=== PATIENT | male | born 1940 | race Hispanic/Latino ===

== ENCOUNTER 2018-05-26 09:53 | Inpatient (IN) | payer OTHER ==
[2018-05-26 10:35] LABS: #Lymphocytes 0.6 thou/uL (1.20-3.40); #Monocytes 0.6 thou/uL (0.11-0.59); #Neutrophils 6.6 thou/uL (1.40-6.50); %Basophils 0.3 % (0.0-1.0); %Eosinophils 0.1 % (0.0-10.0); %Monocytes 7.2 % (0.0-10.0); %Neutrophils 84.4 % (42.0-75.0); Hemoglobin 5.5 g/dL (14.0-18.0); Mean Corpuscular HGB CONC 28.5 g/dL (32.0-36.0); Mean Corpuscular Hemoglobin 20.9 pg (27.0-31.0); Mean Corpuscular Volume 73.3 fL (78.0-98.0); Mean Platelet Volume 8.6 fL (7.4-10.4); Platelet Count 325 thou/uL (130-400); RBC Distribution Width 16.1 % (11.5-14.5); Red Blood Cell (RBC) Count 2.62 mill/uL (4.70-6.10); White Blood Cell (WBC) Count 7.8 thou/uL (4.8-10.8)
[2018-05-26 10:52] LABS: Anisocytosis SLIGHT = 6-15 cells (100X) (0-5/hpf); Burr Cells SLIGHT = 2-5 cells (100X) (0-1/hpf); Elliptocytes SLIGHT = 2-5 cells (100X) (0-1/hpf); Hypochromia SLIGHT = 6-15 cells (100X) (0-5/hpf); MDiff Complete? YES; Microcytosis SLIGHT = 6-15 cells (100X) (0-5/hpf); Ovalocytes SLIGHT = 2-5 cells (100X) (0-1/hpf); Platelet Morphology Comment Appears Adequate; Poikilocytosis MODERATE=16-30 cells (100X) (0-5/hpf); Polychromasia SLIGHT = 2-3 cells (100X) (0-2/hpf); Schistocytes SLIGHT = 2-5 cells (100X) (0-1/hpf); Spherocytes SLIGHT = 1-5 cells (100X) (None Seen); Tear Drops SLIGHT = 2-5 cells (100X) (0-1/hpf)
[2018-05-26 10:54] LABS: ALT (SGPT) 105 U/L (8-55); AST (SGOT) 76 U/L (5-34); Albumin 3.1 g/dL (3.4-4.8); Alkaline Phosphatase 162 U/L (40-150); Anion Gap 13 mmol/L (10-20); BUN (Urea Nitrogen) 62 mg/dL (8.4-25.7); Bilirubin, Total 0.7 mg/dL (0.2-1.2); CK (CPK) 539 U/L (30-200); Calc. Creatinine Clearance 0 mL/min (70-130); Calcium 8.3 mg/dL (7.8-10.44); Carbon Dioxide 20 mmol/L (23-31); Chloride 115 mmol/L (98-107); Estimated GFR-MDRD 29; Globulin 2.4 g/dL (2.4-3.5); Glucose 141 mg/dL (83-110); Potassium 4.5 mmol/L (3.5-5.1); Protein, Total 5.5 g/dL (5.8-8.1); Sodium 143 mmol/L (136-145)
[2018-05-26] MEDS ORDERED: Acetaminophen 325 MG TAB PO PRN (11:00)
[2018-05-26] MEDS ORDERED: Aspirin 325 MG TAB PO SCH (11:00)
[2018-05-26] MEDS ORDERED: Ondansetron PF 4 MG/2 ML Vial IVP PRN (11:00)
[2018-05-26] MEDS ORDERED: Ondansetron ODT 4 MG TAB SL PRN (11:00)
--- NOTE | 2018-05-26 11:36 | RAD ---
PORTABLE CHEST: DATE: 05/26/2018. PROVIDED CLINICAL HISTORY: Cough. FINDINGS: No comparisons. Cardiac silhouette appears enlarged, which may be at least partially on the basis of portable techniq ue. Median sternotomy changes and atherosclerosis demonstrated. There is poor visualization of the left hemidiaphragm that may reflect left basilar pleural and/or parenchymal opacity, with minimal ra nting of the left costophrenic angle. There is no evidence for pneumothorax. Airspace disease in th e left suprahilar region is noted. IMPRESSION: Left suprahilar and possibly also basilar airspace disease, which may reflect pneumonia in the approp riate clinical context. Radiographic followup is recommended. POS: [facility]
[2018-05-26 11:38] LABS: CKMB 6.9 ng/mL (0-6.6)
[2018-05-26 11:56] LABS: Bilirubin Negative (Negative); Blood, Urine Trace (Negative); Clarity CLEAR (Clear); Glucose, Urine (Dipstick) Negative (Negative); Leukocyte Negative (Negative); Nitrite Negative (Negative); Protein, Urine (Dipstick) Trace mg/dL (Neg-Trace); Specific Gravity, Urine 1.015 (1.002-1.036)
[2018-05-26 11:58] LABS: Bacteria/HPF None Seen HPF (None Seen); Hyaline Casts/LPF 0-3 HYALINE CAST LPF (0-3 Hyaline); RBC/HPF 0-3 HPF (0-3); Squamous Epithelial 0-3 HPF (0-3); WBC/HPF 0-3 HPF (0-3)
[2018-05-26 12:12] LABS: Yeast-All Forms None Seen HPF (None Seen)
[2018-05-26] MEDS ORDERED: Furosemide 40 MG TAB ONE ×2 (12:21→12:22)
[2018-05-26] MEDS ORDERED: Furosemide 40 MG/4 ML VIAL ONE (12:21)
--- NOTE | 2018-05-26 13:27 | HP ---
PRIMARY CARE PROVIDER: [facility]. CHIEF COMPLAINT: Shortness of breath. HISTORY OF PRESENT ILLNESS: This is an 78-year-old male, who presents to [facility] Emergency Department in transfer from PAC Unit-1 from [place], [place], where the patient is currently incarcerated. The patient apparently developed increasing shortness of breath and chest pain in the last 24 to 48 hours. History is obtained mainly after discussions with the emergency room attending as well as review of electronic medical record as the patient is on current BiPAP, noninvasive mechanical ventilation, and unable to provide verbal history. The patient had complained of persistent chest pain, throbbing, centrally located over the last 48 hours. The patient had admitted to increased cough, congestion, and shortness of breath. The patient states he has felt very weak and needs assistance with short distance transfers and essentially unable to ambulate. The patient denied taking any new medications and the patient states he is on chronic medication regimen including aspirin daily. The patient denies any prior history of blood transfusions or a colonoscopy or endoscopy. The patient denies any evidence of melena or noting blood in the stool or emesis. In the emergency room, the patient underwent general evaluation and noted with volume overload and hypoxemia. The patient was placed on BiPAP noninvasive mechanical ventilation and treated with IV Lasix after initial BNP was noted at 4800. The patient also receives aspirin 324 mg and sublingual nitroglycerin. Screening CBC showed a hemoglobin of 5.5, and the patient was typed and crossed for 2 units of packed red blood cells, awaiting transfusion in the emergency room. PAST MEDICAL HISTORY: 1. Coronary artery disease. 2. Hyperlipidemia. 3. Benign prostatic hyperplasia. 4. Hypertension. 5. Chronic anemia. 6. Inguinal hernia. PAST SURGICAL HISTORY: Status post coronary artery bypass grafting. MEDICATIONS: 1. Enteric-coated aspirin 81 mg p.o. daily. 2. Lipitor 40 mg p.o. daily. 3. Carvedilol 6.25 mg p.o. b.i.d. 4. Docusate sodium 100 mg p.o. b.i.d. 5. Terazosin 5 mg p.o. at bedtime. ALLERGIES: NO KNOWN DRUG ALLERGIES. FAMILY HISTORY: Positive for hypertension and coronary artery disease. SOCIAL HISTORY: No current alcohol, tobacco, or illicit drug use. Incarcerated at the PAC unit-1 [place], [place]. Requires assistance for short distance ambulation and transfers. REVIEW OF SYSTEMS: Unobtainable as the patient is on noninvasive mechanical ventilation requiring BiPAP. PHYSICAL EXAMINATION: VITAL SIGNS: Currently, blood pressure 123/64, pulse 72, respiratory rate 20, temperature 98.4 degrees Fahrenheit, O2 saturation 100% on BiPAP noninvasive mechanical ventilation. GENERAL APPEARANCE: This is an 78-year-old male, alert and engaged when directly interviewed and respiratory distress on BiPAP noninvasive mechanical ventilation. HEENT: Pupils are equal, round, reactive to light and accommodation. Extraocular muscles are intact. No scleral icterus. No conjunctival injection. Nares patent. OP is clear. NECK: Supple. No cervical adenopathy. No thyromegaly. No carotid bruits. No JVD appreciated. Cervical spine with full active and passive range of motion. No meningeal signs noted. CHEST: Diminished breath sounds and coarse rhonchi bilaterally. Diminished air flow in the bases. CARDIOVASCULAR: S1 and S2 without noted murmur, rub, or gallop. Heart sounds are distant. ABDOMEN: Rounded with mild tenderness to palpation diffusely. No rebound or guarding noted. No palpable mass. EXTREMITIES: Warm and dry with fair turgor, pale. Edema noted to the proximal shins bilaterally. Pulses are palpable distally at the dorsalis pedis, posterior tibial, and popliteal arteries bilaterally. Capillary refill less than 2 seconds. NEUROLOGIC: Cranial nerves 2 through 12 are grossly intact. No focal or lateralizing signs appreciated. The patient not observed ambulatory during this exam. PERTINENT LABORATORY DATA AND X-RAY FINDINGS: Sodium 143, potassium 4.5, chloride 115, CO2 of 20, BUN 62, creatinine 2.22, estimated GFR 29, glucose 141, calcium 8.3, AST 76, ALT 105, and alkaline phosphatase 162, total CK of 539, troponin I 0.064. BNP 4813. CBC showed a white blood cell count of 7.8, hemoglobin 5.5, hematocrit 19.2, MCV 73, platelet count 325 with 84% neutrophilia. Portable chest x-ray dated 05/26/2018, showed chronic changes in bilateral lung espana with cardiomegaly. Left-sided pleural effusion noted. Midline sternotomy changes consistent with prior bypass surgery. EKG dated 05/26/2018, by my interpretation shows sinus mechanism with heart rates in the 70s. Premature ventricular contraction noted. T-wave depression in leads V5 and V6. Normal axis. ASSESSMENT AND PLAN: 1. Acute hypoxic respiratory failure. Suspect secondary to acute volume overload. We will continue BiPAP noninvasive mechanical ventilation and titrate to clinical response. Repeat portable chest x-ray in the a.m. Continue oxygen supplementation to maintain O2 saturations greater than or equal to 90. 2. Acute congestive heart failure exacerbation. Exact type unknown currently. Continue Lasix 40 mg IV b.i.d. Monitor daily I's and O's and weight. Check 2D transthoracic echocardiogram for accurate ejection fraction. Consult Cardiology Service for any further recommendations. Continue aspirin 81 mg daily. 3. Microcytic anemia. Question of acute versus subacute. Type and cross for 2 units of packed red blood cells and transfuse when available. Check iron, ferritin, and reticulocyte count. Check stool guaiac. Consult GI Service for any further recommendations and for consideration of endoscopy. Repeat CBC in the a.m. 4. Acute kidney injury. Suspect multifactorial including iatrogenic influence with volume depletion. Avoid nephrotoxic agents and limit contrast exposure. Serial creatinine monitoring. 5. Transaminitis. Suspect secondary to volume overload. We will continue Lasix 40 mg IV b.i.d. Serial LFT monitoring. Avoid hepatotoxic medications. 6. Demand ischemia. Suspected given initial mild elevation to troponin I. Continue aspirin 81 mg daily. Continue Lipitor 40 mg p.o. daily. Consult Cardiology Service for any further recommendations. 7. Prophylaxis. SCDs while in bed. Pepcid 20 mg IV b.i.d. 8. Code status is full. Surrogate medical decision maker not identified. Job ID: [id number]
[2018-05-26] MEDS ORDERED: Ondansetron ODT 4 MG TAB PO PRN (14:40)
[2018-05-26] MEDS ORDERED: Benzonatate 100 MG CAP PO PRN (14:40)
[2018-05-26] MEDS ORDERED: Furosemide 40 MG/4 ML VIAL SLOW IVP SCH ×2 (14:45→18:00)
[2018-05-26 15:02] LABS: Troponin I 0.062 ng/mL (< 0.028)
[2018-05-26] MEDS: Diabetic Tussin 200 MG/10 ML UDCUP PO PRN (17:24)
[2018-05-26 17:50] LABS: Troponin I 0.056 ng/mL (< 0.028)
[2018-05-26 21:05] LABS: Hemoglobin 7.4 g/dL (14.0-18.0)
--- NOTE | 2018-05-26 22:27 | CON ---
DATE OF CONSULTATION: 05/26/2018 REASON FOR CONSULTATION: Anemia. HISTORY OF PRESENT ILLNESS: Jose Avila is an 78-year-old man who was admitted to the hospital after being transferred from his jail unit in [place] where he is currently incarcerated. He presented with increasing shortness of breath and chest discomfort over the past 24-48 hours. He was initially hypoxic with increased work of breathing and had to be put on BiPAP. He is now off the BiPAP. He complains of progressive fatigue, cough, shortness of breath, and overall weakness. He has a significant cardiac history of coronary artery disease and CABG in the past. It appears he does take aspirin and Lipitor as well as carvedilol daily. On admission labs, he was also found to have a severe microcytic anemia with hemoglobin of 5.5, and he is now receiving 2 units RBC transfusion. It is unclear what the patient's baseline hemoglobin is or how acute this might be. He tells me that for about the past 6 months, he has intermittently had red blood with his bowel movements. This is not really associated with any significant abdominal or anal pain. Oral intake has evidently been just fine. He thinks he might have had a colonoscopy in the past, but would have been in the very distant past. REVIEW OF SYSTEMS: Full review of systems including constitutional, head, eyes, ears, nose, throat, GI, , cardiovascular, respiratory, musculoskeletal, and neurologic systems is negative except as noted in the HPI. PAST MEDICAL HISTORY: 1. Coronary artery disease. 2. Hyperlipidemia. 3. BPH. 4. Hypertension. 5. Chronic anemia. 6. Inguinal hernia. 7. Coronary artery bypass graft. OUTPATIENT MEDICATIONS: 1. Aspirin 81 mg daily. 2. Lipitor 40 mg daily. 3. Carvedilol 6.25 mg b.i.d. 4. Docusate 100 mg p.o. b.i.d. 5. Terazosin 5 mg p.o. at bedtime. ALLERGIES: NO KNOWN DRUG ALLERGIES. FAMILY HISTORY: Positive for hypertension and coronary artery disease. SOCIAL HISTORY: No current alcohol, tobacco, or drug use. He is incarcerated in [place]. PHYSICAL EXAMINATION: VITAL SIGNS: Temperature 98.3, 95% oxygen saturation on 3 L nasal cannula, blood pressure 118/51, pulse 70, respirations 22 per minute. GENERAL: Chronically ill appearing 78-year-old man, pale, lying in bed, in no distress. SKIN: He is pale, no jaundice. No rashes are palpable. EYES: No scleral icterus. Extraocular movements intact. ENT: Mucous membranes moist. No oral lesions. LYMPH: No submandibular or supraclavicular lymphadenopathy. Thyroid nontender to palpation. HEART: Regular rate and rhythm. LUNGS: Bibasilar crackles. No respiratory distress at this time. ABDOMEN: Flat, bowel sounds present. Soft, nontender to palpation throughout. He has left-sided inguinal hernia. EXTREMITIES: 1 to 2+ bilateral lower extremity edema. VESSELS: Radial pulses 2+ bilaterally NEUROLOGIC: Cranial nerves 2 through 12 intact bilaterally. No focal deficits. LABORATORY STUDIES: Hemoglobin 5.5, MCV 73.3, platelets 325. Sodium 143, potassium 4.5, BUN 62, creatinine 2.22, glucose 141, total bilirubin 0.7, alkaline phosphatase 162, AST 76, ALT 105. CK is elevated to 539, CK-MB is elevated to 6.9, troponin is 0.06 and stable. BNP is elevated to 4812. Albumin is 3.1. Urinalysis is negative. IMAGING STUDIES: Chest x-ray shows some airspace disease in the left suprahilar and left basilar area. ASSESSMENT AND PLAN: 1. Microcytic anemia, unknown chronicity. 2. Lower gastrointestinal bleeding, reported as intermittent over the past 6 months. 3. Congestive heart failure, severe by report, with current exacerbation. 4. Acute kidney injury. I discussed the anemia with the patient. It is unclear how chronic this is, but in the context of intermittent lower GI bleeding over the past 6 months, this could certainly be due to chronic gastrointestinal bleeding. Colonoscopy is warranted for further investigation. However, by report, he is found to have significant decreased cardiac function on echocardiogram just performed. I am awaiting that formal report. Cardiology formal evaluation is in process. He is being treated for CHF exacerbation and acute renal failure. I think he would be high risk for any endoscopy at this time. I agree with transfusion for now. We will follow up iron studies when they are available. I think we could potentially proceed with colonoscopy later this admission if he is optimized from a cardiorespiratory standpoint and Cardiology clears him for the procedure. At this time, the patient is certainly in agreement with this. GI can follow along. No plan for any endoscopy at this time. Job ID: [id number]
[2018-05-26] MEDS: Atorvastatin Calcium 40 MG TAB PO SCH (23:13)
[2018-05-27] MEDS: Diabetic Tussin 200 MG/10 ML UDCUP PO PRN (02:11)
[2018-05-27] MEDS: Ondansetron PF 4 MG/2 ML Vial IVP PRN ×2 (02:12→08:30)
[2018-05-27 04:45] LABS: Reticulocyte Count 1.6 % (0.5-1.5)
[2018-05-27 05:24] LABS: Anion Gap 12 mmol/L (10-20); BUN (Urea Nitrogen) 63 mg/dL (8.4-25.7); Calc. Creatinine Clearance 0 mL/min (70-130); Carbon Dioxide 21 mmol/L (23-31); Chloride 115 mmol/L (98-107); Estimated GFR-MDRD 30; Potassium 3.8 mmol/L (3.5-5.1); Sodium 144 mmol/L (136-145)
[2018-05-27 05:25] LABS: ALT (SGPT) 85 U/L (8-55); AST (SGOT) 45 U/L (5-34); Albumin 2.9 g/dL (3.4-4.8); Alkaline Phosphatase 170 U/L (40-150); Bilirubin, Total 0.8 mg/dL (0.2-1.2); CK (CPK) 224 U/L (30-200); Calcium 8.2 mg/dL (7.8-10.44); Globulin 2.6 g/dL (2.4-3.5); Glucose 149 mg/dL (83-110); Iron 11 ug/dL (65-175); Iron Binding Capacity, Total 288 mcg/dL (261-462); Magnesium 2.4 mg/dL (1.6-2.6); Protein, Total 5.5 g/dL (5.8-8.1)
[2018-05-27 05:38] LABS: Thyroid Stimulating Hormone 0.6613 uIU/mL (0.35-4.94)
[2018-05-27] MEDS: Furosemide 40 MG/4 ML VIAL SLOW IVP SCH ×2 (05:58→13:18)
[2018-05-27 06:15] LABS: Anisocytosis SLIGHT = 6-15 cells (100X) (0-5/hpf); Band 10 % (5-11); Burr Cells SLIGHT = 2-5 cells (100X) (0-1/hpf); Elliptocytes SLIGHT = 2-5 cells (100X) (0-1/hpf); Hemoglobin 6.8 g/dL (14.0-18.0); Hypochromia SLIGHT = 6-15 cells (100X) (0-5/hpf); Lymphocytes 5 % (21-51); MDiff Complete? YES; Mean Corpuscular HGB CONC 29.3 g/dL (32.0-36.0); Mean Corpuscular Hemoglobin 22.3 pg (27.0-31.0); Mean Corpuscular Volume 76.3 fL (78.0-98.0); Mean Platelet Volume 8.7 fL (7.4-10.4); Microcytosis SLIGHT = 6-15 cells (100X) (0-5/hpf); Monocytes 4 % (0-10); Neutrophil 81 % (42-75); Platelet Count 318 thou/uL (130-400); Platelet Morphology Comment Appears Adequate; Poikilocytosis MODERATE=16-30 cells (100X) (0-5/hpf); Polychromasia SLIGHT = 2-3 cells (100X) (0-2/hpf); RBC Distribution Width 17.6 % (11.5-14.5); Red Blood Cell (RBC) Count 3.02 mill/uL (4.70-6.10); Schistocytes SLIGHT = 2-5 cells (100X) (0-1/hpf); Spherocytes SLIGHT = 1-5 cells (100X) (None Seen); White Blood Cell (WBC) Count 8.1 thou/uL (4.8-10.8)
[2018-05-27] MEDS: Famotidine/PF 20 mg/2ml Vial SLOW IVP SCH (07:51)
[2018-05-27] MEDS ORDERED: Aspirin 81 mg Enteric Coated Tablet PO SCH (09:00)
--- NOTE | 2018-05-27 09:33 | RAD ---
PORTABLE CHEST: Date: 05/27/18 HISTORY: CCU follow-up. Dyspnea. COMPARISON: 05/26/18. FINDINGS/IMPRESSION: Cardiomegaly. Vascular congestion. Perihilar edema. Small effusions. Bibasilar atelectasis. Above findings not significantly changed from yesterday. POS: [facility]
[2018-05-27 12:57] LABS: Ferritin 107.65 ng/mL (22-322)
[2018-05-27] MEDS: Carvedilol 3.125 MG TAB PO SCH (15:18)
[2018-05-27] MEDS: hydrALAZINE 25 MG TAB PO SCH ×2 (15:18→23:45)
--- NOTE | 2018-05-27 16:25 | PDOC.PN ---
- Subjective Encounter Start Date: 05/27/18 Encounter Start Time: 16:23 Subjective: Admitted with worsening SOB and chest pain. Found to have Hb of 5.5 -: Feeling better. No fever. denied chest pain currently - Objective Resuscitation Status - Order Detail: 05/26/18 11:59 Resuscitation Status Routine Resuscitation Status: FULL: Full Resuscitation Vital Signs & Weight: Vital Signs (12 hours) Temp 05/27/18 15:00 98.3 F 05/27/18 11:00 98.6 F 05/27/18 07:00 99.6 F Weight Admit Weight 2.773 oz Weight 174 lb 2.643 oz Most Recent Monitor Data Heart Rate from ECG 73 NIBP 113/48 NIBP BP-Mean 69 Respiration from ECG 22 SpO2 99 I&O: 05/26/18 05/27/18 05/28/18 06:59 06:59 06:59 Intake Total 1153 463 Output Total 2009 2424 [facility]157 -[id number] Result Diagrams: 05/27/18 04:24 05/27/18 04:24 Phys Exam - Physical Examination eldely male in no obvious distress. afebrile. HEENT: moist MMs Neck: supple Bibasal crackles irregular rhythm and rate. tachycardic. Gastrointestinal: soft, no distention, positive bowel sounds moderate bilateral leg edema Neurological: moves all 4 limbs Psychiatric: A&O x 3 Dx/Plan - Plan Acute respiratory failure due to CHF exacerbation and severe anemia Acute on chronic systolic and diastolic HF Ischemic cardiomyopathy Severe microscopic anemia: etiology unclear. ? occult GI bleeding. there is no history of melena or hemetemesis. Hb down to 6.8 from 7.4. Atrial fib with RVR type 2 NSTEMI/demand ischemia CAD s/p CABG BPH Abnormal LFT iron deficiency anemia Renal insufficiency: CKD vs AICHA on CKD vs AICHA Plan Transfuse 2 more units of PRBC Continue IV lasix. Monitor renal function Get UA with microscopy DVT prophylaxis with SCD * .
--- NOTE | 2018-05-27 17:15 | PRG ---
DATE OF SERVICE: 05/27/2018 SUBJECTIVE: Mr. Avila says he continues to feel weak. He is complaining of worsening lower extremity edema. He continues to have dyspnea on exertion. He has not had any bowel movements. No melena or hematochezia noted. Hemoglobin came up yesterday from 5.5 to 7.4 after 2 units of RBC transfusion. This morning it drifted down a little bit to 6.8. He is going to be getting 2 more units. Cardiology recommendations are still pending. OBJECTIVE: VITAL SIGNS: Temperature 98.3, blood pressure 113/48, heart rate 78, and 99% oxygen saturation on 3 L nasal cannula. GENERAL: Chronically ill, pale, in no acute distress. HEART: Regular rate and rhythm. LUNGS: Bibasilar crackles. ABDOMEN: Soft, nontender to palpation. EXTREMITIES: 1+ bilateral lower extremity edema. LABORATORY STUDIES: WBC 8.1, hemoglobin 6.8, platelets 318. Sodium 144, potassium 3.8, BUN 63, creatinine 2.12, ferritin 107.65, total bilirubin 0.8, alkaline phosphatase 170, AST 45, ALT 85. BNP is 4171.9. TSH 0.66. ASSESSMENT AND PLAN: 1. Anemia, microcytic. 2. Rectal bleeding, intermittent over the past 6 months. 3. Congestive heart failure. No new specific recommendations from a GI perspective. Agree with further blood transfusion as already planned. GI can continue to follow along. I still think endoscopy would carry quite high cardiopulmonary risk and the patient himself is not wanting to undergo any endoscopic investigation with regard to his anemia. I do think that if his cardiorespiratory status is optimized and Cardiology clears him, we could potentially proceed with diagnostic EGD and colonoscopy later this admission, but we will see how he does day to day. Job ID: [id number]
[2018-05-27] MEDS: Acetaminophen 500 MG TAB PO PRN (20:16)
[2018-05-27] MEDS: Atorvastatin Calcium 40 MG TAB PO SCH ×2 (20:16)
[2018-05-27] MEDS ORDERED: Furosemide 40 MG/4 ML VIAL ONE (20:57)
--- NOTE | 2018-05-28 00:09 | CON ---
DATE OF CONSULTATION: 05/27/2018 SUBJECTIVE: Mr. Avila is a gentleman, who has presented with GI blood loss. I saw him because of his presence in the ICU. His hemodynamics have been stable. He was fixated on an inguinal hernia that he has. He had a Fournier placed while I was outside the room and had 500 mL plus of urine in his bladder and then managed to get down and get out of his Fournier, so he will have a diaper and we may not be unable to quantitate the intake and output. PAST MEDICAL HISTORY: Remarkable for, 1. Coronary artery disease. 2. Lipid disorder. 3. BPH. 4. Hypertension. 5. Inguinal hernias. 6. Coronary artery bypass grafting. MEDICATIONS: Prior to admission, his medicines have been reviewed. SOCIAL HISTORY: He is a nonsmoker and nondrinker. FAMILY HISTORY: Positive for vascular disease and hypertension. REVIEW OF SYSTEMS: 10 point review of systems completed, otherwise negative. PHYSICAL EXAMINATION: VITAL SIGNS: Oximetry is 100% on 2 L, heart rate 103, blood pressure 119/51, respiratory rate in the 20s. HEENT: Pupils react. HEAD: Unremarkable. NECK: Unremarkable. LUNGS: Clear. HEART: Regular rhythm. No murmur. ABDOMEN: Soft and nontender. EXTREMITIES: Without clubbing, cyanosis, or edema. LABORATORY DATA: White count 8.1, hemoglobin 6.8, platelets 318,000 this morning. Sodium 144, potassium 3.8, chloride 115, bicarb 21, BUN 63, creatinine 2.12. IMPRESSION: 1. Gastrointestinal blood loss, being followed by Gastroenterology. 2. Elevated liver enzymes. 3. Probable stress-induced troponin release. 4. Markedly elevated BNP, probably most consistent with chronic cardiomyopathy. 5. Blood loss anemia. 6. Congestive heart failure. He will need to be transfused and followed closely. 7. Chronic kidney disease. His prognosis with multiple medical problems is guarded. We will continue supportive care. I would be happy to follow the other physicians caring for him. He is having no acute pulmonary or respiratory issues at this time. This is a 70 minute consult, with greater than 50% of time spent on unit coordinating care. Job ID: [id number] MTDD
[2018-05-28 04:59] LABS: #Lymphocytes 0.6 thou/uL (1.20-3.40); #Monocytes 0.2 thou/uL (0.11-0.59); %Eosinophils 0.1 % (0.0-10.0); %Lymphocytes 8.7 % (21.0-51.0); %Monocytes 3.5 % (0.0-10.0); %Neutrophils 87.6 % (42.0-75.0); Hemoglobin 9.4 g/dL (14.0-18.0); Mean Corpuscular HGB CONC 29.7 g/dL (32.0-36.0); Mean Corpuscular Hemoglobin 23.2 pg (27.0-31.0); Mean Corpuscular Volume 78.1 fL (78.0-98.0); Mean Platelet Volume 8.8 fL (7.4-10.4); Platelet Count 248 thou/uL (130-400); RBC Distribution Width 17.8 % (11.5-14.5); Red Blood Cell (RBC) Count 4.05 mill/uL (4.70-6.10); White Blood Cell (WBC) Count 6.8 thou/uL (4.8-10.8)
[2018-05-28 05:02] LABS: ALT (SGPT) 72 U/L (8-55); AST (SGOT) 37 U/L (5-34); Albumin 2.7 g/dL (3.4-4.8); Alkaline Phosphatase 160 U/L (40-150); Anion Gap 12 mmol/L (10-20); BUN (Urea Nitrogen) 60 mg/dL (8.4-25.7); Bilirubin, Total 1.1 mg/dL (0.2-1.2); Calc. Creatinine Clearance 30 mL/min (70-130); Calcium 8.4 mg/dL (7.8-10.44); Carbon Dioxide 24 mmol/L (23-31); Chloride 114 mmol/L (98-107); Estimated GFR-MDRD 29; Globulin 2.8 g/dL (2.4-3.5); Glucose 129 mg/dL (83-110); Magnesium 2.2 mg/dL (1.6-2.6); Potassium 3.4 mmol/L (3.5-5.1); Protein, Total 5.5 g/dL (5.8-8.1); Sodium 147 mmol/L (136-145)
[2018-05-28] MEDS: Furosemide 40 MG/4 ML VIAL SLOW IVP SCH (05:25)
[2018-05-28] MEDS: Carvedilol 3.125 MG TAB PO SCH ×2 (07:46→16:13)
[2018-05-28] MEDS: Famotidine/PF 20 mg/2ml Vial SLOW IVP SCH (07:46)
[2018-05-28] MEDS: Diabetic Tussin 200 MG/10 ML UDCUP PO PRN (08:04)
[2018-05-28] MEDS: hydrALAZINE 25 MG TAB PO SCH ×3 (10:56→21:10)
--- NOTE | 2018-05-28 13:33 | PRG ---
DATE OF SERVICE: 05/28/2018 SUBJECTIVE: Mr. Jones is doing fine. No significant changes in clinical status. He feels he is breathing easily. He has no chest or abdominal pain. He has been tolerating his diet. He had a single smear of nonbloody stool. No melena or hematochezia. He received 2 units RBC transfusion yesterday and hemoglobin came up nicely to 9.4. OBJECTIVE: VITAL SIGNS: Blood pressure 116/58, pulse 115, and 92% oxygen saturation on 2 L nasal cannula, and temperature is 98.2. GENERAL: No acute distress. HEART: Regular rate and rhythm. LUNGS: Bibasilar crackles. ABDOMEN: Soft and nontender to deep palpation throughout. EXTREMITIES: 1+ bilateral lower extremity edema. LABORATORY STUDIES: Hemoglobin up to 9.4, WBC 6.8, and platelets 248. Sodium 147, potassium 3.4, BUN 60, creatinine 2.18, total bilirubin 1.1, alkaline phosphatase 160, AST 37, and ALT 72. BNP is 4171.9. ASSESSMENT AND PLAN: 1. Microcytic anemia. 2. Rectal bleeding, reportedly intermittent over the past 6 months or so. 3. Severe systolic congestive heart failure. Nothing new from a GI perspective today. Note that he has had no overt bleeding from the GI tract for at least the past couple of days that he has been here. Hemoglobin came up nicely with transfusion. EGD and colonoscopy are still indicated for evaluation of his anemia to rule out occult GI bleeding lesion, but the patient would be high cardiac risk for this procedure. The patient is not particularly wanting to pursue any endoscopy given his stability and the cardiac risks. If Cardiology was to clear him for the procedure and the patient were willing, then we could certainly perform EGD and colonoscopy. Otherwise, GI will sign off at this time. Please call anytime with updates in status or questions or concerns. Job ID: [id number]
[2018-05-28] MEDS ORDERED: Furosemide 40 MG/4 ML VIAL SLOW IVP SCH ×2 (14:00→21:00)
--- NOTE | 2018-05-28 14:32 | PDOC.PN ---
- Subjective Encounter Start Date: 05/28/18 Encounter Start Time: 10:30 Subjective: No new problem. Feeling better. Denied chest pain. - Objective Resuscitation Status - Order Detail: 05/26/18 11:59 Resuscitation Status Routine Resuscitation Status: FULL: Full Resuscitation Vital Signs & Weight: Vital Signs (12 hours) Temp Pulse Ox 05/28/18 12:00 98.1 F 05/28/18 08:00 98.2 F 95 05/28/18 04:00 97.9 F Weight Admit Weight 2.773 oz Weight 157 lb 6.561 oz Most Recent Monitor Data Heart Rate from ECG 98 NIBP 93/74 NIBP BP-Mean 80 Respiration from ECG 28 SpO2 95 I&O: 05/27/18 05/28/18 05/29/18 06:59 06:59 06:59 Intake Total 1153 1763 240 Output Total 2009 0905 4012 [facility] [phone] Result Diagrams: 05/28/18 04:32 05/28/18 04:32 Phys Exam - Physical Examination HEENT: moist MMs Neck: supple fair air entry with bibasal crackles irregular rhthm, tachycardic Gastrointestinal: soft, non-tender, positive bowel sounds moderate bilateral leg edema. Neurological: moves all 4 limbs Psychiatric: A&O x 3 Deviation from normal: Right arm ecchymosis noted Dx/Plan (1) Acute on chronic systolic and diastolic heart failure, NYHA class 3 Code(s): I50.43 - ACUTE ON CHRONIC COMBINED SYSTOLIC AND DIASTOLIC HRT FAIL Status: Acute (2) Iron deficiency anemia due to chronic blood loss Code(s): D50.0 - IRON DEFICIENCY ANEMIA SECONDARY TO BLOOD LOSS (CHRONIC) Status: Acute (3) AICHA (acute kidney injury) Code(s): N17.9 - ACUTE KIDNEY FAILURE, UNSPECIFIED Status: Acute (4) CAD (coronary artery disease) Code(s): I25.10 - ATHSCL HEART DISEASE OF [place] CORONARY ARTERY W/O ANG PCTRS Status: Acute (5) Demand ischemia of myocardium Code(s): I24.8 - OTHER FORMS OF ACUTE ISCHEMIC HEART DISEASE Status: Acute (6) Physical deconditioning Code(s): R53.81 - OTHER MAL[place]ISE Status: Acute (7) Paroxysmal atrial fibrillation with RVR Code(s): I48.0 - PAROXYSMAL ATRIAL FIBRILLATION Status: Acute (8) Acute respiratory failure with hypoxia Code(s): J96.01 - ACUTE RESPIRATORY FAILURE WITH HYPOXIA Status: Acute (9) BPH (benign prostatic hyperplasia) Code(s): N40.0 - BENIGN PROSTATIC HYPERPLASIA WITHOUT LOWER URINRY TRACT SYMP Status: Acute (10) Abnormal LFTs Code(s): R94.5 - ABNORMAL RESULTS OF LIVER FUNCTION STUDIES Status: Acute - Plan Continue diuretics and low dose coreg. -: Monitor H/H and transfuse as needed. Start IV iron repletion. -: EGD and Colonoscopy planned by GI -: Cardiology following. Monitor electrolytes and replete as needed -: DC hydralazine due to hypotension. Monitor renal function. * .
[2018-05-28] MEDS ORDERED: Amiodarone 150 MG in Dextrose 5% in Water 100 ML IVPB SCH (14:45)
[2018-05-28] MEDS ORDERED: Aspirin 81 mg Enteric Coated Tablet PO SCH (14:45)
[2018-05-28] MEDS: Amiodarone 450 MG, Admixture Fee 1 EACH in Dextrose 5% in Water 250 ML IVPB SCH (15:47)
[2018-05-28] MEDS: Acetaminophen 500 MG TAB PO PRN (16:11)
[2018-05-28] MEDS: Potassium Chloride 20 MEQ TAB PO SCH (16:13)
--- NOTE | 2018-05-28 16:22 | PRG ---
DATE OF SERVICE: 05/28/2018 SUBJECTIVE: Jose Avila has no new complaints. OBJECTIVE: VITAL SIGNS: His heart rate is in the high 90s to just over 100, blood pressure 105/56, and respiratory rate is in the 20s. LUNGS: Clear. HEART: Regular rhythm. ABDOMEN: Soft and nontender. LABORATORY DATA: White count 6.8, hemoglobin 9.4, and platelets are 248. Sodium 147, potassium 3.4, chloride 114, bicarb 24, BUN 60, and creatinine 2.18. Liver enzymes remain about the same. Albumin is about the same. IMPRESSION: 1. Anemia, status post transfusion with stable hemoglobin. Presumably GI blood loss given his history of rectal bleeding. 2. Congestive heart failure. There is no quantitation of ejection fraction, just an elevated BNP this admission. He is going to be in the hospital for a while and echocardiogram should be performed in my opinion. 3. He is stable to move out of the critical care unit in my opinion. Job ID: [id number]
[2018-05-28] MEDS ORDERED: Sodium Chloride 0.9% 500 ML IVPB SCH ×2 (17:30→18:45)
[2018-05-28] MEDS: Atorvastatin Calcium 40 MG TAB PO SCH (21:09)
[2018-05-29] MEDS: Amiodarone 450 MG, Admixture Fee 1 EACH in Dextrose 5% in Water 250 ML IVPB SCH (01:04)
[2018-05-29] MEDS: Furosemide 40 MG/4 ML VIAL SLOW IVP SCH ×2 (06:00→13:15)
[2018-05-29 06:36] LABS: ALT (SGPT) 53 U/L (8-55); AST (SGOT) 35 U/L (5-34); Albumin 2.3 g/dL (3.4-4.8); Alkaline Phosphatase 144 U/L (40-150); Anion Gap 10 mmol/L (10-20); BUN (Urea Nitrogen) 60 mg/dL (8.4-25.7); Calc. Creatinine Clearance 29 mL/min (70-130); Calcium 7.8 mg/dL (7.8-10.44); Carbon Dioxide 24 mmol/L (23-31); Chloride 112 mmol/L (98-107); Estimated GFR-MDRD 31; Globulin 2.5 g/dL (2.4-3.5); Glucose 120 mg/dL (83-110); Potassium 3.1 mmol/L (3.5-5.1); Protein, Total 4.8 g/dL (5.8-8.1); Sodium 143 mmol/L (136-145)
[2018-05-29 06:41] LABS: #Lymphocytes 0.6 thou/uL (1.20-3.40); #Monocytes 0.3 thou/uL (0.11-0.59); #Neutrophils 14.8 thou/uL (1.40-6.50); %Basophils 0.2 % (0.0-1.0); %Eosinophils 0.1 % (0.0-10.0); %Lymphocytes 4.1 % (21.0-51.0); %Monocytes 1.7 % (0.0-10.0); Hemoglobin 8.7 g/dL (14.0-18.0); Mean Corpuscular HGB CONC 29.4 g/dL (32.0-36.0); Mean Corpuscular Volume 78.2 fL (78.0-98.0); Mean Platelet Volume 9.6 fL (7.4-10.4); Platelet Count 220 thou/uL (130-400); RBC Distribution Width 17.8 % (11.5-14.5); White Blood Cell (WBC) Count 15.7 thou/uL (4.8-10.8)
[2018-05-29 09:20] LABS: Bite Cells SLIGHT = 2-5 cells (100X) (0-1/hpf); Hypochromia SLIGHT = 6-15 cells (100X) (0-5/hpf); MDiff Complete? YES; Platelet Morphology Comment Appears Adequate
[2018-05-29] MEDS: Famotidine/PF 20 mg/2ml Vial SLOW IVP SCH (10:14)
[2018-05-29] MEDS: hydrALAZINE 25 MG TAB PO SCH (10:14)
[2018-05-29] MEDS: Aspirin 81 mg Enteric Coated Tablet PO SCH (10:15)
[2018-05-29] MEDS: Carvedilol 3.125 MG TAB PO SCH ×2 (10:15→15:59)
[2018-05-29] MEDS: Potassium Chloride 20 MEQ TAB PO SCH ×2 (10:15→15:59)
[2018-05-29] MEDS ORDERED: Amiodarone 150 MG, Admixture Fee 1 EACH in Dextrose 5% in Water 100 ML IVPB SCH (12:00)
[2018-05-29] MEDS: Iron, Sodium Ferric Gluconate 250 MG in Sodium Chloride 0.9% 100 ML IVPB SCH (12:57)
[2018-05-29] MEDS: Digoxin 0.5 MG/2 ML AMP SLOW IVP SCH ×2 (13:00→15:59)
--- NOTE | 2018-05-29 15:29 | PDOC.PN ---
- Subjective Encounter Start Date: 05/29/18 Encounter Start Time: 15:27 Subjective: feels OK. main complaint is of testicular swelling & he reports that he is -: supposed to have a hernia Sx soon -: reports breathing is better - Objective Resuscitation Status - Order Detail: 05/26/18 11:59 Resuscitation Status Routine Resuscitation Status: FULL: Full Resuscitation Vital Signs & Weight: Vital Signs (12 hours) Temp Pulse BP Pulse Ox 05/29/18 14:54 99.4 F 05/29/18 13:00 76 05/29/18 10:14 76 89/47 L 05/29/18 07:45 95 05/29/18 07:12 97.3 F L 05/29/18 03:42 98.0 F Weight Admit Weight 2.773 oz Weight 161 lb Most Recent Monitor Data Heart Rate from ECG 79 NIBP 106/64 NIBP BP-Mean 78 Respiration from ECG 23 SpO2 92 I&O: 05/28/18 05/29/18 05/30/18 06:59 06:59 06:59 Intake Total 1763 1964.4 Output Total 5155 2470 Balance -3392 -505.6 Result Diagrams: 05/29/18 05:41 05/29/18 05:41 Phys Exam - Physical Examination Constitutional: NAD HEENT: PERRLA, moist MMs, sclera anicteric, oral pharynx no lesions Neck: no nodes, no JVD, supple, full ROM Respiratory: no wheezing, no rales, no rhonchi, clear to auscultation bilateral Cardiovascular: RRR, no significant murmur Gastrointestinal: soft, non-tender, no distention, positive bowel sounds Musculoskeletal: no edema, pulses present Neurological: non-focal, normal sensation, moves all 4 limbs Psychiatric: normal affect, A&O x 3 Skin: no rash Dx/Plan (1) Acute on chronic systolic and diastolic heart failure, NYHA class 3 Code(s): I50.43 - ACUTE ON CHRONIC COMBINED SYSTOLIC AND DIASTOLIC HRT FAIL Status: Acute (2) AICHA (acute kidney injury) Code(s): N17.9 - ACUTE KIDNEY FAILURE, UNSPECIFIED Status: Acute (3) Paroxysmal atrial fibrillation with RVR Code(s): I48.0 - PAROXYSMAL ATRIAL FIBRILLATION Status: Acute Comment: on amiodarone drip (4) Demand ischemia of myocardium Code(s): I24.8 - OTHER FORMS OF ACUTE ISCHEMIC HEART DISEASE Status: Acute (5) Hematochezia Code(s): K92.1 - MELENA Status: Acute Comment: H/H stable. Pt does not want any further work up.GI signed off. cont to monitor (6) Abnormal LFTs Code(s): R94.5 - ABNORMAL RESULTS OF LIVER FUNCTION STUDIES Status: Acute Comment: rg passive vascular congestion (7) Acute respiratory failure with hypoxia Code(s): J96.01 - ACUTE RESPIRATORY FAILURE WITH HYPOXIA Status: Acute (8) BPH (benign prostatic hyperplasia) Code(s): N40.0 - BENIGN PROSTATIC HYPERPLASIA WITHOUT LOWER URINRY TRACT SYMP Status: Chronic (9) CAD (coronary artery disease) Code(s): I25.10 - ATHSCL HEART DISEASE OF [place] CORONARY ARTERY W/O ANG PCTRS Status: Chronic (10) Iron deficiency anemia due to chronic blood loss Code(s): D50.0 - IRON DEFICIENCY ANEMIA SECONDARY TO BLOOD LOSS (CHRONIC) Status: Acute (11) Physical deconditioning Code(s): R53.81 - OTHER MALAISE Status: Acute (12) Cardiomyopathy Code(s): I42.9 - CARDIOMYOPATHY, UNSPECIFIED Status: Chronic Comment: rg Ischemic.EF 10-15% - Plan continue antibiotics, respiratory therapy, incentive spirometry, out of bed/ ambulate, DVT proph w/SCDs cont cardio prudent meds. cardiology following -: may need lifevest prior to DC. -: cont diuresis.renal US as poor urine output. -: Hr controlled on amiodarone drip. -: BP low .stop hydralazine. * .cont potassium supplement. * am labs Review of Systems - Review of Systems Constitutional: negative: fever, chills, sweats, weakness, malaise, other ENT: negative: Ear Pain, Ear Discharge, Nose Pain, Nose Discharge, Nose Congestion, Mouth Pain, Mouth Swelling, Throat Pain, Throat Swelling, Other Respiratory: negative: Cough, Dry, Shortness of Breath, Hemoptysis, SOB with Excertion, Pleuritic Pain, Sputum, Wheezing Cardiovascular: negative: chest pain, palpitations, orthopnea, paroxysmal nocturnal dyspnea, edema, light headedness, other Gastrointestinal: negative: Nausea, Vomiting, Abdominal Pain, Diarrhea, Constipation, Melena, Hematochezia, Other Genitourinary: negative: Dysuria, Frequency, Incontinence, Hematuria, Retention , Other Musculoskeletal: negative: Neck Pain, Shoulder Pain, Arm Pain, Back Pain, Hand Pain, Leg Pain, Foot Pain, Other Neurological: negative: Weakness, Numbness, Incoordination, Change in Speech, Confusion, Seizures, Other - Medications/Allergies Allergies/Adverse Reactions: Allergies Allergy/AdvReac Type Severity Reaction Status Date / Time No Known Allergies Allergy Unverified 05/26/18 13:46 Medications: Current Medications Acetaminophen (Tylenol) 1,000 mg PO Q6H PRN PRN Reason: Mild Pain (1-3) Last Admin: 05/28/18 16:11 Dose: 1,000 mg Aspirin (Ecotrin) 81 mg PO DAILY [facility] Last Admin: 05/29/18 10:15 Dose: 81 mg Atorvastatin Calcium (Lipitor) 40 mg PO HS [facility] Last Admin: 05/28/18 21:09 Dose: 40 mg Benzonatate (Tessalon) 100 mg PO Q6H PRN PRN Reason: Cough Last Admin: 05/28/18 06:38 Dose: 100 mg Carvedilol (Coreg) 3.125 mg PO BID-[facility] Last Admin: 05/29/18 10:15 Dose: 3.125 mg Digoxin (Lanoxin) [facility] [place] [facility] Famotidine (Pepcid) 20 mg SLOW IVP DAILY [facility] Last Admin: 05/29/18 10:14 Dose: 20 mg Furosemide (Lasix) 40 mg SLOW IVP 0600,1400 [facility] Last Admin: 05/29/18 13:15 Dose: 40 mg Guaifenesin (Robitussin Sf) 200 mg PO Q4H PRN PRN Reason: Cough Last Admin: 05/28/18 08:04 Dose: 200 mg Ferric Sodium Gluconate Complex 250 mg/ Sodium Chloride 120 mls @ 120 mls/hr IVPB DAILY [facility] Last Admin: 05/29/18 12:57 Dose: 120 mls Amiodarone HCl 450 mg/Miscellaneous Medication 1 each/ Dextrose/Water 259 mls @ 0 mls/hr IVPB INF [facility]; Protocol Last Admin: 05/29/18 01:04 Dose: 259 mls Ondansetron HCl (Zofran Odt) 4 mg PO Q6H PRN PRN Reason: Nausea/Vomiting Ondansetron HCl (Zofran) 4 mg IVP Q6H PRN PRN Reason: Nausea/Vomiting Last Admin: 05/27/18 08:30 Dose: 4 mg Potassium Chloride (K-Dur) 20 meq PO BID-[facility] Last Admin: 05/29/18 10:15 Dose: 20 meq Sodium Chloride (Flush - Normal Saline) 10 ml IVF PRN PRN PRN Reason: Saline Flush
--- NOTE | 2018-05-29 16:54 | ULT ---
RENAL ULTRASOUND: History: Acute kidney insufficiency. Chronic kidney disease. Poor urine output. Comparison: None. Technique: Sagittal and transverse imaging of the kidneys is performed. FINDINGS: There are bilateral pleural effusions. Fournier catheter decompresses the urinary bladder and evaluation is limited. There is a 2.0 x 1.8 x 1.8 cm anechoic focus in the upper pole of the right kidney, compatible with a cyst. Suboptimal evaluation of the left kidney. Right kidney measures 5.8 x 5.7 x 9.3 cm. IMPRESSION: 1. Limited evaluation. With regard to the right kidney, no hydronephrosis. 2. Left kidney cannot be adequately assessed. 3. Bilateral pleural effusions. POS: [facility]
[2018-05-29] MEDS: Atorvastatin Calcium 40 MG TAB PO SCH (20:34)
[2018-05-30 05:42] LABS: ALT (SGPT) 60 U/L (8-55); AST (SGOT) 61 U/L (5-34); Albumin 2.2 g/dL (3.4-4.8); Alkaline Phosphatase 163 U/L (40-150); Anion Gap 16 mmol/L (10-20); BUN (Urea Nitrogen) 69 mg/dL (8.4-25.7); Bilirubin, Total 1.1 mg/dL (0.2-1.2); Calc. Creatinine Clearance 26 mL/min (70-130); Calcium 8.2 mg/dL (7.8-10.44); Carbon Dioxide 20 mmol/L (23-31); Chloride 111 mmol/L (98-107); Estimated GFR-MDRD 27; Globulin 2.8 g/dL (2.4-3.5); Glucose 117 mg/dL (83-110); Potassium 3.5 mmol/L (3.5-5.1); Sodium 143 mmol/L (136-145)
[2018-05-30] MEDS: Amiodarone 450 MG, Admixture Fee 1 EACH in Dextrose 5% in Water 250 ML IVPB SCH (06:03)
[2018-05-30] MEDS: Furosemide 40 MG/4 ML VIAL SLOW IVP SCH ×2 (06:03→14:05)
[2018-05-30 06:13] LABS: Anisocytosis SLIGHT = 6-15 cells (100X) (0-5/hpf); Band 27 % (5-11); Crenated RBC SLIGHT = 1-5 cells (100X) (None Seen); Elliptocytes SLIGHT = 2-5 cells (100X) (0-1/hpf); Hemoglobin 9.2 g/dL (14.0-18.0); Lymphocytes 2 % (21-51); MDiff Complete? YES; Mean Corpuscular HGB CONC 29.5 g/dL (32.0-36.0); Mean Corpuscular Hemoglobin 22.9 pg (27.0-31.0); Mean Corpuscular Volume 77.7 fL (78.0-98.0); Mean Platelet Volume 10.2 fL (7.4-10.4); Monocytes 1 % (0-10); Neutrophil 70 % (42-75); Nucleated RBC 2 % (0); Platelet Count 211 thou/uL (130-400); RBC Distribution Width 18.2 % (11.5-14.5); White Blood Cell (WBC) Count 20.2 thou/uL (4.8-10.8)
[2018-05-30] MEDS: Aspirin 81 mg Enteric Coated Tablet PO SCH (09:31)
[2018-05-30] MEDS: Potassium Chloride 20 MEQ TAB PO SCH ×2 (09:31→18:05)
[2018-05-30] MEDS: Famotidine/PF 20 mg/2ml Vial SLOW IVP SCH (09:32)
[2018-05-30] MEDS: Carvedilol 3.125 MG TAB PO SCH ×2 (09:32→18:05)
[2018-05-30] MEDS ORDERED: Spironolactone 25 MG TAB PO SCH (09:45)
--- NOTE | 2018-05-30 10:17 | RAD ---
PORTABLE CHEST ONE VIEW: 05/30/2018 9:45 a.m. HISTORY: Pneumonia. COMPARISON: 05/27/2018 FINDINGS: Changes of median sternotomy are again seen. The heart is enlarged. Patchy air space disease is not ed in the right mid, right lower, and left lower lung zones. Small effusions may be present. No pne umothoraces are identified. Findings are consistent with pneumonia. POS: [facility]
--- NOTE | 2018-05-30 10:43 | PQF ---
EFRAIN ARMENDARIZ RICHA MD [id number] IMCU- B12 [id number] CLINICAL DOCUMENTATION IMPROVEMENT CLARIFICATION FORM: ICD-10 Updated PLEASE DO AN ADDENDUM TO THE PROGRESS NOTE WITH ANY DOCUMENTATION UPDATES OR ADDITIONS AND CARRY THROUGH TO DC SUMMARY. THANK YOU. DATE: 05/30 ATTN: DR. RASHMI STEVENS Please exercise your independent, professional judgment in responding to the clarification form. Clinical indicators are provided on the bottom of this form for your review. Conflicting documentation was noted in the Medical Record, please clarify if patient is being treated/monitored for: [ ] TYPE II NSTEMI/DEMAND ISCHEMIA (PN 05/27) [X ] DEMAND ISCHEMIA (H&P 05/26, PN 05/28 & ) [ ] Other diagnosis [ ] Unable to determine In addition, please specify: Present on Admission (POA): [ X ] Yes [ ] No [ ] Unable to determine For continuity of documentation, please document condition throughout progress notes and discharge summary. Thank You. CLINICAL INDICATORS - SIGNS / SYMPTOMS/ LABS TROPONIN I: 0.064, 0.062, 0.056 (05/26) H&P DOCUMENTATION 05/26 (XIANG): ASSESSMENT & PLAN: 6) DEMAND ISCHEMIA. SUSPECTED GIVEN INITIAL MILD ELEVATION TO TROPONIN 1 PN 05/27 (OBI): DX/PLAN: TYPE 2 NSTEMI/DEMAND ISCHEMIA PN 05/28 (SHAEI): DX/PLAN: 5) DEMAND ISCHEMIA OF MYOCARDIUM PN 05/29 (RODNEY): DX/PLAN: 4) DEMAND ISCHEMIA OF MYOCARDIUM RISKS: HX OF CAD ACUTE ON CHRONIC SYSTOLIC HF EXACERBATION (PN 05/27 - PRESENT) ACUTE HYPOXIC RESPIRATORY FAILURE (H&P 05/26-PRESENT) TREATMENT: IMCU MONITORING (05/26 - PRESENT) IV LASIX (05/26 - PRESENT) CARDIOLOGY CONSULT (PENDING) ECHO (05/29) THANK YOU! P attjuvenal (This form is maintained as a part of the permanent medical record) 2014 [employer]. All Rights Reserved Yisel Galvez RN, BSN [email or web address] Office: [phone] [facility]
--- NOTE | 2018-05-30 12:38 | RAD ---
CHEST ONE VIEW: HISTORY: Evaluate for pneumonia. COMPARISON: 05/30/2018 FINDINGS: There are sternotomy wires. There is atherosclerosis of the aorta. The heart is enlarged. The pulmo nary vessels are within normal limits. Persistent opacifications, predominantly in the left and righ t lung bases, as well as in the perihilar region. The degree of opacification has slightly decreased , suggesting improved aeration. Small bilateral effusions are suspected. There is no pneumothorax. IMPRESSION: Slightly improved aeration of the lung parenchyma. Continued surveillance is recommended. POS: [facility]
--- NOTE | 2018-05-30 13:42 | PDOC.PN ---
- Subjective Encounter Start Date: 05/30/18 Encounter Start Time: 13:40 Subjective: feels Ok.eager to go home. -: coughing .needed bipap over 18 hours - Objective Resuscitation Status - Order Detail: 05/30/18 11:16 Resuscitation Status Routine Resuscitation Status: DNAR: NO Resuscitation Discussed with: discussed w pt in detail MAR Reviewed: Yes Vital Signs & Weight: Vital Signs (12 hours) Temp Pulse Pulse Ox 05/30/18 11:25 97.0 F L 05/30/18 10:49 90 L 05/30/18 08:11 63 05/30/18 08:10 95 05/30/18 07:55 95 05/30/18 07:08 98.0 F 05/30/18 04:23 97.9 F 05/30/18 03:36 96 Weight Admit Weight 2.773 oz Weight 162 lb 11.2 oz Most Recent Monitor Data Heart Rate from ECG 71 NIBP 130/78 NIBP BP-Mean 95 Respiration from ECG 25 SpO2 91 I&O: 05/29/18 05/30/18 05/31/18 06:59 06:59 06:59 Intake Total 1964.4 298 Output Total 2470 650 Balance -505.6 -352 Result Diagrams: 05/30/18 04:46 05/30/18 04:46 Additional Labs: Microbiology 05/26/18 10:46 Urine voided Urine Culture - Final Laboratory Tests 05/26/18 05/26/18 05/26/18 10:22 10:22 10:22 Hgb 5.5 L* Creatinine 2.22 H AST 76 H ALT 105 H Alkaline Phosphatase 162 H Troponin I B-Natriuretic Peptide 4812.7 H 05/26/18 05/26/18 05/26/18 10:22 14:28 17:16 Hgb Creatinine AST ALT Alkaline Phosphatase Troponin I 0.064 H 0.062 H 0.056 H B-Natriuretic Peptide 05/26/18 05/27/18 05/27/18 20:47 04:24 04:24 Hgb 7.4 L Creatinine 2.12 H AST 45 H ALT 85 H Alkaline Phosphatase 170 H Troponin I B-Natriuretic Peptide 4171.9 H 05/27/18 05/28/18 05/28/18 04:24 04:32 04:32 Hgb 6.8 L 9.4 L Creatinine 2.18 H AST 37 H ALT 72 H Alkaline Phosphatase 160 H Troponin I B-Natriuretic Peptide 05/29/18 05/29/18 05/29/18 05:41 05:41 11:10 Hgb 8.7 L Creatinine 2.10 H AST 35 H ALT 53 Alkaline Phosphatase 144 Troponin I B-Natriuretic Peptide 2468.1 H 05/30/18 04:46 Hgb Creatinine 2.37 H AST 61 H ALT 60 H Alkaline Phosphatase 163 H Troponin I B-Natriuretic Peptide Phys Exam - Physical Examination frail looking,slumped sideways ,coughing but awake & alert HEENT: PERRLA, moist MMs, sclera anicteric, oral pharynx no lesions Neck: no nodes, no JVD, supple, full ROM Respiratory: no wheezing, no rales, no rhonchi coarse breath sounds bilateral Cardiovascular: RRR, no significant murmur Gastrointestinal: soft, non-tender, no distention, positive bowel sounds Musculoskeletal: no edema, pulses present Neurological: non-focal, normal sensation, moves all 4 limbs Psychiatric: normal affect, A&O x 3 Skin: no rash Dx/Plan (1) Acute on chronic systolic and diastolic heart failure, NYHA class 3 Code(s): I50.43 - ACUTE ON CHRONIC COMBINED SYSTOLIC AND DIASTOLIC HRT FAIL Status: Acute Comment: cont diuresis.EF 10-15% on ECHO. on ASA,BB,statin.No CHIQUI-I/ARB due to AICHA/CKD. Add aldcatone (2) AICHA (acute kidney injury) Code(s): N17.9 - ACUTE KIDNEY FAILURE, UNSPECIFIED Status: Acute Comment: may have some underling CKD. renal US consistant with CKD (3) Paroxysmal atrial fibrillation with RVR Code(s): I48.0 - PAROXYSMAL ATRIAL FIBRILLATION Status: Acute Comment: on amiodarone drip (4) Demand ischemia of myocardium Code(s): I24.8 - OTHER FORMS OF ACUTE ISCHEMIC HEART DISEASE Status: Acute (5) Hematochezia Code(s): K92.1 - MELENA Status: Acute Comment: H/H stable. Pt does not want any further work up.GI signed off. cont to monitor (6) Abnormal LFTs Code(s): R94.5 - ABNORMAL RESULTS OF LIVER FUNCTION STUDIES Status: Acute Comment: joseley passive vascular congestion (7) Acute respiratory failure with hypoxia Code(s): J96.01 - ACUTE RESPIRATORY FAILURE WITH HYPOXIA Status: Acute (8) BPH (benign prostatic hyperplasia) Code(s): N40.0 - BENIGN PROSTATIC HYPERPLASIA WITHOUT LOWER URINRY TRACT SYMP Status: Chronic (9) CAD (coronary artery disease) Code(s): I25.10 - ATHSCL HEART DISEASE OF [place] CORONARY ARTERY W/O ANG PCTRS Status: Chronic (10) Iron deficiency anemia due to chronic blood loss Code(s): D50.0 - IRON DEFICIENCY ANEMIA SECONDARY TO BLOOD LOSS (CHRONIC) Status: Acute Comment: stable now (11) Physical deconditioning Code(s): R53.81 - OTHER MALAISE Status: Acute (12) Cardiomyopathy Code(s): I42.9 - CARDIOMYOPATHY, UNSPECIFIED Status: Chronic Comment: rg Ischemic.EF 10-15% - Plan DVT proph w/SCDs hold digoxin. HR slower today on Amio drip -: final cardiology recs awaited regarding Lifevest etc -: will consult nephrology for worsening renal Fx specially on diuresis -: worsening leucocytosis w bandemia. will get CXR and blood Cx. ?aspiration -: will consult maintenance data analyst * .poor insight to disease process and prognosis * he just wants to be released from shelter to go back to [place]. * am labs Review of Systems - Review of Systems Constitutional: negative: fever, chills, sweats, weakness, malaise, other Respiratory: negative: Cough, Dry, Shortness of Breath, Hemoptysis, SOB with Excertion, Pleuritic Pain, Sputum, Wheezing Cardiovascular: negative: chest pain, palpitations, orthopnea, paroxysmal nocturnal dyspnea, edema, light headedness, other Gastrointestinal: negative: Nausea, Vomiting, Abdominal Pain, Diarrhea, Constipation, Melena, Hematochezia, Other Genitourinary: negative: Dysuria, Frequency, Incontinence, Hematuria, Retention , Other Musculoskeletal: negative: Neck Pain, Shoulder Pain, Arm Pain, Back Pain, Hand Pain, Leg Pain, Foot Pain, Other Neurological: negative: Weakness, Numbness, Incoordination, Change in Speech, Confusion, Seizures, Other - Medications/Allergies Allergies/Adverse Reactions: Allergies Allergy/AdvReac Type Severity Reaction Status Date / Time No Known Allergies Allergy Unverified 05/26/18 13:46 Medications: Current Medications Acetaminophen (Tylenol) 1,000 mg PO Q6H PRN PRN Reason: Mild Pain (1-3) Last Admin: 05/28/18 16:11 Dose: 1,000 mg Aspirin (Ecotrin) 81 mg PO DAILY [facility] Last Admin: 05/30/18 09:31 Dose: 81 mg Atorvastatin Calcium (Lipitor) 40 mg PO HS [facility] Last Admin: 05/29/18 20:34 Dose: 40 mg Benzonatate (Tessalon) 100 mg PO Q6H PRN PRN Reason: Cough Last Admin: 05/28/18 06:38 Dose: 100 mg Carvedilol (Coreg) 3.125 mg PO BID-[facility] Last Admin: 05/30/18 09:32 Dose: 3.125 mg Digoxin (Lanoxin) 0.125 mg PO [facility] Famotidine (Pepcid) 20 mg SLOW IVP DAILY [facility] Last Admin: 05/30/18 09:32 Dose: 20 mg Furosemide (Lasix) 40 mg SLOW IVP 0600,1400 [facility] Last Admin: 05/30/18 06:03 Dose: 40 mg Guaifenesin (Robitussin Sf) 200 mg PO Q4H PRN PRN Reason: Cough Last Admin: 05/28/18 08:04 Dose: 200 mg Ferric Sodium Gluconate Complex 250 mg/ Sodium Chloride 120 mls @ 120 mls/hr IVPB DAILY [facility] Last Admin: 05/29/18 12:57 Dose: 120 mls Amiodarone HCl 450 mg/Miscellaneous Medication 1 each/ Dextrose/Water 259 mls @ 0 mls/hr IVPB INF [facility]; Protocol Last Admin: 05/30/18 06:03 Dose: 259 mls Ondansetron HCl (Zofran Odt) 4 mg PO Q6H PRN PRN Reason: Nausea/Vomiting Ondansetron HCl (Zofran) 4 mg IVP Q6H PRN PRN Reason: Nausea/Vomiting Last Admin: 05/27/18 08:30 Dose: 4 mg Potassium Chloride (K-Dur) 20 meq PO BID-[facility] Last Admin: 05/30/18 09:31 Dose: 20 meq Sodium Chloride (Flush - Normal Saline) 10 ml IVF PRN PRN PRN Reason: Saline Flush Spironolactone (Aldactone) 12.5 mg PO QAM-[facility]
[2018-05-30] MEDS: Iron, Sodium Ferric Gluconate 250 MG in Sodium Chloride 0.9% 100 ML IVPB SCH (14:06)
[2018-05-30] MEDS: Digoxin 0.125 MG TAB PO SCH (14:15)
--- NOTE | 2018-05-30 15:52 | PRG ---
DATE OF SERVICE: 05/30/2018 SUBJECTIVE: Mr. Jones apparently was hypoxic overnight, started on BiPAP. He is back on the cannula now. OBJECTIVE: VITAL SIGNS: He is afebrile, heart rate 63, blood pressure 130/78, and oximetry is 91%. GENERAL: He was made a do not resuscitate patient by the hospitalist. LUNGS: Remarkable for rhonchi on the right. HEART: Regular rhythm. ABDOMEN: Soft. LABORATORY DATA: White count 20.3, hemoglobin 9.2, and platelets 211. He has 27% bands on his peripheral smear. Sodium 143, potassium 3.5, chloride 111, bicarb 20, BUN 69, and creatinine 2.37. Intake and outputs; negative 352. IMAGING STUDIES: Chest x-ray reviewed by me, suggestive of an early right upper lobe infiltrate. It is still hazy at both lung bases. His x-ray overall was improved compared to his admitting film, but there may be something new in his right upper lung field in my opinion. IMPRESSION: 1. Pneumonia, hospital acquired. 2. Cirrhosis. 3. Severe anemia. 4. History of coronary artery disease and coronary artery bypass grafting in the past. 5. Lipid disorder. 6. Hypertension. 7. Inguinal hernias. 8. BPH. 9. Marginally, medically compliant. I told he might have pneumonia, very quickly tell me he did not have pneumonia. This needed to be discharged. Job ID: [id number]
[2018-05-30] MEDS: Piperacillin/Tazobactam 3.375 GM in Sodium Chloride 0.9% 100 ML IVPB SCH (18:06)
--- NOTE | 2018-05-30 19:59 | CON ---
DATE OF CONSULTATION: 05/30/2018 CONSULTING PHYSICIAN: Dr. Yolande Loera. REASON FOR CONSULTATION: Acute kidney injury. REASON FOR ADMISSION: Shortness of breath. HISTORY OF PRESENT ILLNESS: This is an 78-year-old male with history of coronary artery disease, hyperlipidemia, BPH, hypertension, and anemia, who came to the hospital with shortness of breath and is being treated. For congestive heart failure, he was on IV diuretics, and his creatinines keep on rising. His creatinine on admission was around 2.2 and is currently 2.37. We do not have any old labs for comparison. No fever or chills. The patient's swelling seems to be better, but he is noncompliant with his dietary, fluid restrictions, and medication regimen. No chest pain or palpitation reported. PAST MEDICAL HISTORY: Positive for coronary artery disease, hyperlipidemia, BPH, hypertension, anemia, and inguinal hernia. PAST SURGICAL HISTORY: CABG. HOME MEDICATIONS: 1. Aspirin. 2. Lipitor. 3. Carvedilol. 4. Docusate. 5. Terazosin. ALLERGIES: NO KNOWN DRUG ALLERGIES. SOCIAL HISTORY: No smoking, alcohol, or illicit drug abuse. FAMILY HISTORY: Positive for hypertension. REVIEW OF SYSTEMS: CONSTITUTIONAL: Negative for weight loss or gain, ability to conduct usual activities. SKIN: Negative for rash, itching. EYES: Negative for double vision, pain. ENT/MOUTH: Negative for nose bleeding, neck stiffness, pain, tenderness. CARDIOVASCULAR: Negative for palpitations, dyspnea on exertion, orthopnea. RESPIRATORY: Negative for shortness of breath, wheezing, cough, hemoptysis, fever or night sweats. GASTROINTESTINAL: Negative for poor appetite, abdominal pain, heartburn, nausea, vomiting, constipation, or diarrhea. GENITOURINARY: Negative for urgency, frequency, dysuria, nocturia. MUSCULOSKELETAL: Negative for pain, swelling. NEUROLOGIC/PSYCHIATRIC: Negative for anxiety, depression. ALLERGY/IMMUNOLOGIC: Negative for skin rash, bleeding tendency. PHYSICAL EXAMINATION: GENERAL: This is a well-built male, in no apparent distress. VITAL SIGNS: Temperature 98.8, pulse 71, respiratory rate 18, blood pressure 144/68. HEENT: Atraumatic and normocephalic. Oral mucosa is moist. NECK: Supple. CARDIOVASCULAR: S1 and S2 heard. Rate and rhythm are regular. RESPIRATORY: Clear. GI: Abdomen is soft. MUSCULOSKELETAL: 1+ edema. DERMATOLOGIC: No skin rash. NEUROLOGIC: Alert and awake. PSYCHIATRIC: Normal mood and affect. LABORATORY DATA: Hemoglobin is 9.2. Potassium is 3.5, BUN is 69, creatinine is 2.3. ASSESSMENT AND PLAN: 1. Chronic kidney disease, stage 4. Renal function seems to be stable. 2. Cardiorenal syndrome. 3. Hypokalemia, better. 4. Metabolic acidosis. 5. Elevated BNP. 6. Fluid overload. Agree with Lasix. 7. Hyperalbuminemia. 8. History of cirrhosis. 9. Multiorgan failure. Prognosis is guarded. Agree with DNR. No acute indication for dialysis. We will follow. Thank you for the consult. Job ID: [id number]
[2018-05-30] MEDS: Atorvastatin Calcium 40 MG TAB PO SCH (20:50)
--- NOTE | 2018-05-30 21:21 | PDOC.EVN ---
Event Note - Event Note Event Note: ACP NOTE Pt was Overnight on Bipap with worsening respiratory status.Code status and diagnosis and prognosis discussed in detail.Pt was not very capable of grasping the severity of his disease process when he was told that he has severe Cardiomyopathy and is at very high risk of sudden cardiac .Also expressed concern that he might be silently aspirating and developing PNA> He was dismissive. after much effort he answered the questions being asked and after being explained in detail about the resuscitation process and his poor chances of meaningful recovery ,if he were to ever get intubated,he expressed wishes to not undergo CPR,Intubation or any other invasive measures. Discussion done in prescence of retirement guards and RN.. Code status juan jose in [facility]. total time spent 17 minutes.
[2018-05-31] MEDS: Piperacillin/Tazobactam 3.375 GM in Sodium Chloride 0.9% 100 ML IVPB SCH ×4 (00:08→18:21)
[2018-05-31 05:42] LABS: #Basophils 0.1 thou/uL (0.0-0.2); #Lymphocytes 0.5 thou/uL (1.20-3.40); #Monocytes 0.4 thou/uL (0.11-0.59); %Basophils 0.3 % (0.0-1.0); %Eosinophils 0.1 % (0.0-10.0); %Lymphocytes 3.4 % (21.0-51.0); %Monocytes 2.8 % (0.0-10.0); %Neutrophils 93.4 % (42.0-75.0); Mean Corpuscular HGB CONC 29.1 g/dL (32.0-36.0); Mean Platelet Volume 10.4 fL (7.4-10.4); Platelet Count 199 thou/uL (130-400); RBC Distribution Width 18.2 % (11.5-14.5); Red Blood Cell (RBC) Count 3.49 mill/uL (4.70-6.10)
[2018-05-31] MEDS: Furosemide 40 MG/4 ML VIAL SLOW IVP SCH ×2 (06:18→14:09)
[2018-05-31 07:22] LABS: ALT (SGPT) 72 U/L (8-55); AST (SGOT) 99 U/L (5-34); Albumin 2.1 g/dL (3.4-4.8); Alkaline Phosphatase 241 U/L (40-150); Anion Gap 15 mmol/L (10-20); BUN (Urea Nitrogen) 73 mg/dL (8.4-25.7); Bilirubin, Total 1.4 mg/dL (0.2-1.2); Calc. Creatinine Clearance 27 mL/min (70-130); Calcium 8.1 mg/dL (7.8-10.44); Carbon Dioxide 22 mmol/L (23-31); Chloride 109 mmol/L (98-107); Estimated GFR-MDRD 27; Globulin 2.9 g/dL (2.4-3.5); Glucose 83 mg/dL (83-110); Potassium 3.1 mmol/L (3.5-5.1); Sodium 143 mmol/L (136-145)
[2018-05-31] MEDS: Digoxin 0.125 MG TAB PO SCH (10:13)
[2018-05-31] MEDS: Spironolactone 25 MG TAB PO SCH (10:14)
[2018-05-31] MEDS: Amiodarone 200 MG TAB PO SCH ×2 (10:14→21:23)
[2018-05-31] MEDS: Aspirin 81 mg Enteric Coated Tablet PO SCH (10:14)
[2018-05-31] MEDS: Potassium Chloride 20 MEQ TAB PO SCH ×2 (10:14→18:21)
[2018-05-31] MEDS: Carvedilol 3.125 MG TAB PO SCH (10:15)
[2018-05-31] MEDS: Famotidine/PF 20 mg/2ml Vial SLOW IVP SCH (10:16)
--- NOTE | 2018-05-31 14:11 | PRG ---
DATE OF SERVICE: 05/31/2018 SUBJECTIVE: Mr. Jose Avila was apparently placed back on BiPAP last night. OBJECTIVE: VITAL SIGNS: He is less responsive today. He is afebrile, heart rate is in the 60s, blood pressure 105/47, respiratory rates in the teens. LUNGS: Distant. HEART: Regular rhythm, S1-S2 are normal. LABORATORY DATA: White count yesterday was 19. There is no CBC today. Sodium 143, potassium 3.1, chloride 109, bicarb 22, BUN 73, creatinine 2.30. Yesterday, creatinine was 2.37. I have suggested an ammonia level to be drawn. IMPRESSION: 1. Pneumonia. 2. Cirrhosis, rule out hepatic encephalopathy. 3. Chronic kidney disease, this may be stabilizing. 4. Coronary artery bypass grafting in the past. 5. Liver disorder. 6. Hypertension. 7. Anemia with no ongoing gastrointestinal blood loss with a history of intermittent rectal bleeding. 8. Left ventricular systolic dysfunction with an ejection fraction of 10-15 percent and moderate mitral regurgitation. 9. His prognosis is quite poor given multiorgan advanced disease. Job ID: [id number]
--- NOTE | 2018-05-31 16:45 | PDOC.PN ---
- Subjective Encounter Start Date: 05/31/18 Encounter Start Time: 16:43 Subjective: worse today.somnolent & requring Bipap -: not responding to commands - Objective Resuscitation Status - Order Detail: 05/30/18 11:16 Resuscitation Status Routine Resuscitation Status: DNAR: NO Resuscitation Discussed with: discussed w pt in detail MAR Reviewed: Yes Vital Signs & Weight: Vital Signs (12 hours) Temp Pulse Pulse Ox 05/31/18 15:29 98.5 F 05/31/18 11:08 98.1 F 05/31/18 10:51 59 L 05/31/18 10:13 59 L 05/31/18 08:00 59 L 05/31/18 07:45 97 05/31/18 07:25 98.7 F Weight Admit Weight 2.773 oz Weight 161 lb 6.4 oz Most Recent Monitor Data Heart Rate from ECG 65 NIBP 111/53 NIBP BP-Mean 72 Respiration from ECG 19 SpO2 94 I&O: 05/30/18 05/31/18 06/01/18 06:59 06:59 06:59 Intake Total 298 1540 Output Total 650 2500 Balance -352 -960 Result Diagrams: 05/31/18 04:17 05/31/18 04:17 Additional Labs: Microbiology 05/26/18 10:46 Urine voided Urine Culture - Final 05/30/18 10:33 Venous blood - Right Hand Blood Culture - Preliminary Specimen has been received and culture in progress. No Growth to date. 05/30/18 10:33 Venous blood - Left Hand Blood Culture - Preliminary Specimen has been received and culture in progress. No Growth to date. 05/30/18 10:33 Venous blood - Left Hand Blood Culture - Preliminary Coagulase Neg Staphylococcus Laboratory Tests 05/26/18 05/26/18 05/26/18 10:22 10:22 20:47 WBC Hgb 5.5 L* 7.4 L Creatinine 2.22 H Ammonia 05/27/18 05/27/18 05/28/18 04:24 04:24 04:32 WBC Hgb 6.8 L Creatinine 2.12 H 2.18 H Ammonia 05/28/18 05/29/18 05/29/18 04:32 05:41 05:41 WBC 6.8 15.7 H Hgb 9.4 L 8.7 L Creatinine 2.10 H Ammonia 05/30/18 05/30/18 05/31/18 04:46 04:46 04:17 WBC 20.2 H Hgb 9.2 L Creatinine 2.37 H 2.30 H Ammonia 05/31/18 05/31/18 04:17 13:19 WBC 15.0 H Hgb 8.0 L Creatinine Ammonia 32 Phys Exam - Physical Examination minimally responsive to stimulus bipap Neck: no JVD Respiratory: no wheezing, clear to auscultation bilateral Cardiovascular: RRR, no significant murmur Gastrointestinal: soft, non-tender, no distention, positive bowel sounds Musculoskeletal: no edema, pulses present limited as he can not follow commands somnolent,delirious Dx/Plan (1) Acute encephalopathy Code(s): G93.40 - ENCEPHALOPATHY, UNSPECIFIED Status: Acute Comment: Multifactorial.Ammonia NL.suspect Hypercarbia.Pt DNR/DNI (2) Acute on chronic systolic and diastolic heart failure, NYHA class 3 Code(s): I50.43 - ACUTE ON CHRONIC COMBINED SYSTOLIC AND DIASTOLIC HRT FAIL Status: Acute Comment: cont diuresis.EF 10-15% on ECHO. on ASA,BB,statin.No CHIQUI-I/ARB due to AICHA/CKD. Add aldcatone (3) AICHA (acute kidney injury) Code(s): N17.9 - ACUTE KIDNEY FAILURE, UNSPECIFIED Status: Acute Comment: may have some underling CKD. renal US consistant with CKD (4) Paroxysmal atrial fibrillation with RVR Code(s): I48.0 - PAROXYSMAL ATRIAL FIBRILLATION Status: Acute Comment: on amiodarone .NSR now (5) Demand ischemia of myocardium Code(s): I24.8 - OTHER FORMS OF ACUTE ISCHEMIC HEART DISEASE Status: Acute (6) Hematochezia Code(s): K92.1 - MELENA Status: Acute Comment: H/H stable. Pt does not want any further work up.GI signed off. cont to monitor (7) Abnormal LFTs Code(s): R94.5 - ABNORMAL RESULTS OF LIVER FUNCTION STUDIES Status: Acute Comment: joseley passive vascular congestion (8) Acute respiratory failure with hypoxia Code(s): J96.01 - ACUTE RESPIRATORY FAILURE WITH HYPOXIA Status: Acute (9) BPH (benign prostatic hyperplasia) Code(s): N40.0 - BENIGN PROSTATIC HYPERPLASIA WITHOUT LOWER URINRY TRACT SYMP Status: Chronic (10) CAD (coronary artery disease) Code(s): I25.10 - ATHSCL HEART DISEASE OF [place] CORONARY ARTERY W/O ANG PCTRS Status: Chronic (11) Iron deficiency anemia due to chronic blood loss Code(s): D50.0 - IRON DEFICIENCY ANEMIA SECONDARY TO BLOOD LOSS (CHRONIC) Status: Acute Comment: stable now (12) Physical deconditioning Code(s): R53.81 - OTHER MALAISE Status: Acute (13) Cardiomyopathy Code(s): I42.9 - CARDIOMYOPATHY, UNSPECIFIED Status: Chronic Comment: rg Ischemic.EF 10-15% - Plan DVT proph w/SCDs critically ill. not unexpected.will try to locate family -: cont Bipap prn.on zosyn for possible aspiration PNA. -: [employer] recs noted-aspirating.diet w precuations -: cont diuresis. watch renal Fx.nephrology recs noted -: Stop digoxin given Bradycardia.Will restart coreg if HR tolerates * .Guarded prognosis * am labs Review of Systems - Review of Systems Other: can not be obtained due to delirium - Medications/Allergies Allergies/Adverse Reactions: Allergies Allergy/AdvReac Type Severity Reaction Status Date / Time No Known Allergies Allergy Unverified 05/26/18 13:46 Medications: Current Medications Acetaminophen (Tylenol) 1,000 mg PO Q6H PRN PRN Reason: Mild Pain (1-3) Last Admin: 05/28/18 16:11 Dose: 1,000 mg Amiodarone HCl (Cordarone) 200 mg PO BID [facility] Last Admin: 05/31/18 10:14 Dose: 200 mg Aspirin (Ecotrin) 81 mg PO DAILY [facility] Last Admin: 05/31/18 10:14 Dose: 81 mg Atorvastatin Calcium (Lipitor) 40 mg PO HS [facility] Last Admin: 05/30/18 20:50 Dose: 40 mg Benzonatate (Tessalon) 100 mg PO Q6H PRN PRN Reason: Cough Last Admin: 05/28/18 06:38 Dose: 100 mg Digoxin (Lanoxin) 0.125 mg PO QAM [facility] Last Admin: 05/31/18 10:13 Dose: 0.125 mg Famotidine (Pepcid) 20 mg SLOW IVP DAILY [facility] Last Admin: 05/31/18 10:16 Dose: 20 mg Furosemide (Lasix) 40 mg SLOW IVP 0600,1400 [facility] Last Admin: 05/31/18 14:09 Dose: 40 mg Guaifenesin (Robitussin Sf) 200 mg PO Q4H PRN PRN Reason: Cough Last Admin: 05/28/18 08:04 Dose: 200 mg Piperacillin Sod/Tazobactam (Sod 3.375 gm/ Sodium Chloride) 100 mls @ 200 mls/ hr IVPB Q6HR [facility] Last Admin: 05/31/18 14:09 Dose: 100 mls Ondansetron HCl (Zofran Odt) 4 mg PO Q6H PRN PRN Reason: Nausea/Vomiting Ondansetron HCl (Zofran) 4 mg IVP Q6H PRN PRN Reason: Nausea/Vomiting Last Admin: 05/27/18 08:30 Dose: 4 mg Potassium Chloride (K-Dur) 20 meq PO BID-[facility] Last Admin: 05/31/18 10:14 Dose: 20 meq Sodium Chloride (Flush - Normal Saline) 10 ml IVF PRN PRN PRN Reason: Saline Flush Last Admin: 05/31/18 06:19 Dose: 10 ml Spironolactone (Aldactone) 12.5 mg PO QAM-[facility] Last Admin: 05/31/18 10:14 Dose: 12.5 mg
--- NOTE | 2018-05-31 18:02 | PRG ---
DATE OF SERVICE: 05/31/2018 SUBJECTIVE: Patient was seen and examined at bedside and overnight events noted. patient lethargic and somnolent today. No history of nausea or vomiting or diarrhea or fever or chills or cramps. OBJECTIVE: GENERAL: This is a well-built male who is somnolent. VITAL SIGNS: Temperature 98.5. Heart rate is 62. Respiratory rate 19. Blood pressure 126/54. HEENT: Atraumatic, normocephalic. Oral mucosa is moist NECK: Supple. CARDIOVASCULAR: S1, S2 heard. Rate and rhythm regular. RESPIRATORY: Clear to auscultation. GASTROINTESTINAL: Abdomen is soft. MUSCULOSKELETAL: No tenderness. No edema. DERMATOLOGIC: No skin rash. NEUROLOGIC: somnolent PSYCHIATRIC: Mood and affect normal. LABORATORY DATA: Potassium is 3.1, BUN is 73, creatinine is 2.3 ASSESSMENT AND PLAN: 1. Acute kidney injury on chronic kidney disease, stage 4. Renal function is stable. 2. Cardiorenal syndrome. 3. Hypokalemia. 4. Metabolic acidosis. 5. Fluid overload. 6. History of cirrhosis. 7. History of multiorgan failure. 8. Elevated BNP. 9. Hypoalbuminemia. The patient's prognosis is very poor given the multiorgan failure. No acute indication for dialysis. The patient is a poor candidate for dialysis too. Job ID: [id number] MTDD
[2018-05-31] MEDS: Atorvastatin Calcium 40 MG TAB PO SCH (21:23)
[2018-06-01] MEDS: Piperacillin/Tazobactam 3.375 GM in Sodium Chloride 0.9% 100 ML IVPB SCH ×4 (00:16→17:16)
[2018-06-01] MEDS: Furosemide 40 MG/4 ML VIAL SLOW IVP SCH (05:41)
[2018-06-01] MEDS: Furosemide 20 MG TAB PO SCH ×2 (09:34→17:15)
[2018-06-01] MEDS: Potassium Chloride 20 MEQ TAB PO SCH ×2 (09:34→17:16)
[2018-06-01] MEDS: Famotidine/PF 20 mg/2ml Vial SLOW IVP SCH (09:34)
[2018-06-01] MEDS: Spironolactone 25 MG TAB PO SCH (09:34)
[2018-06-01] MEDS: Aspirin 81 mg Enteric Coated Tablet PO SCH (09:34)
[2018-06-01] MEDS: Amiodarone 200 MG TAB PO SCH ×2 (09:34→20:13)
--- NOTE | 2018-06-01 13:10 | PRG ---
DATE OF SERVICE: SUBJECTIVE: Patient was seen and examined at bedside and overnight events noted. Patient denies any shortness of breath or chest pain or palpitation. No history of nausea or vomiting or diarrhea or fever or chills or cramps. OBJECTIVE: GENERAL: This is a elderly male in no apparent distress. VITAL SIGNS: Temperature 98.8. Heart rate 61. Respiratory rate . Blood pressure 113/50. HEENT: Atraumatic, normocephalic. Oral mucosa is moist NECK: Supple. CARDIOVASCULAR: S1, S2 heard. Rate and rhythm regular. RESPIRATORY: Clear to auscultation. GASTROINTESTINAL: Abdomen is soft. MUSCULOSKELETAL: No tenderness. No edema. DERMATOLOGIC: No skin rash. NEUROLOGIC: Alert and awake and oriented X3. No focal neurologic deficits. Moving all the extremities. PSYCHIATRIC: Mood and affect normal. LABORATORY DATA: Not done today. ASSESSMENT AND PLAN: 1. Acute kidney injury on chronic kidney disease, stage 4. 2. Cardiorenal syndrome. 3. Hypokalemia, . 4. History of cirrhosis. 5. Multiorgan failure. Overall prognosis is poor. We will follow. Job ID: [id number]
--- NOTE | 2018-06-01 15:38 | PDOC.PN ---
- Subjective Encounter Start Date: 06/01/18 Encounter Start Time: 15:37 Subjective: off of Bipap.stable fo rnow w/o any ON events - Objective Resuscitation Status - Order Detail: 05/30/18 11:16 Resuscitation Status Routine Resuscitation Status: DNAR: NO Resuscitation Discussed with: discussed w pt in detail MAR Reviewed: Yes Vital Signs & Weight: Vital Signs (12 hours) Temp Pulse Ox 06/01/18 15:10 99.6 F 06/01/18 11:26 98.8 F 06/01/18 08:00 94 L 06/01/18 07:10 99.2 F 06/01/18 03:53 99.6 F Weight Admit Weight 2.773 oz Weight 156 lb 12.8 oz Most Recent Monitor Data Heart Rate from ECG 56 NIBP 120/51 NIBP BP-Mean 74 Respiration from ECG 19 SpO2 95 I&O: 05/31/18 06/01/18 06/02/18 06:59 06:59 06:59 Intake Total 1540 1530 Output Total 2500 2950 Balance -960 -1420 Result Diagrams: 05/31/18 04:17 05/31/18 04:17 Additional Labs: Microbiology 05/26/18 10:46 Urine voided Urine Culture - Final 05/30/18 10:33 Venous blood - Right Hand Blood Culture - Preliminary Specimen has been received and culture in progress. No Growth to date. 05/30/18 10:33 Venous blood - Left Hand Blood Culture - Preliminary Coagulase Neg Staphylococcus Coagulase Neg Staphylococcus#2 Phys Exam - Physical Examination Constitutional: NAD HEENT: PERRLA, moist MMs, sclera anicteric, oral pharynx no lesions rales b/l Cardiovascular: RRR, no significant murmur Gastrointestinal: soft, non-tender, no distention, positive bowel sounds Musculoskeletal: no edema, pulses present Neurological: non-focal, normal sensation, moves all 4 limbs Psychiatric: normal affect, A&O x 3 Skin: no rash Dx/Plan (1) Acute encephalopathy Code(s): G93.40 - ENCEPHALOPATHY, UNSPECIFIED Status: Acute Comment: Multifactorial.Ammonia NL.suspect Hypercarbia.Pt DNR/DNI.improved (2) Acute on chronic systolic and diastolic heart failure, NYHA class 3 Code(s): I50.43 - ACUTE ON CHRONIC COMBINED SYSTOLIC AND DIASTOLIC HRT FAIL Status: Acute Comment: cont diuresis.EF 10-15% on ECHO. on ASA,BB,statin.No CHIQUI-I/ARB due to AICHA/CKD. Add aldcatone (3) AICHA (acute kidney injury) Code(s): N17.9 - ACUTE KIDNEY FAILURE, UNSPECIFIED Status: Acute Comment: may have some underling CKD. renal US consistant with CKD (4) Paroxysmal atrial fibrillation with RVR Code(s): I48.0 - PAROXYSMAL ATRIAL FIBRILLATION Status: Acute Comment: on amiodarone .NSR now (5) Demand ischemia of myocardium Code(s): I24.8 - OTHER FORMS OF ACUTE ISCHEMIC HEART DISEASE Status: Acute (6) Hematochezia Code(s): K92.1 - MELENA Status: Acute Comment: H/H stable. Pt does not want any further work up.GI signed off. cont to monitor (7) Abnormal LFTs Code(s): R94.5 - ABNORMAL RESULTS OF LIVER FUNCTION STUDIES Status: Acute Comment: rg passive vascular congestion (8) Acute respiratory failure with hypoxia Code(s): J96.01 - ACUTE RESPIRATORY FAILURE WITH HYPOXIA Status: Acute (9) BPH (benign prostatic hyperplasia) Code(s): N40.0 - BENIGN PROSTATIC HYPERPLASIA WITHOUT LOWER URINRY TRACT SYMP Status: Chronic (10) CAD (coronary artery disease) Code(s): I25.10 - ATHSCL HEART DISEASE OF [place] CORONARY ARTERY W/O ANG PCTRS Status: Chronic (11) Iron deficiency anemia due to chronic blood loss Code(s): D50.0 - IRON DEFICIENCY ANEMIA SECONDARY TO BLOOD LOSS (CHRONIC) Status: Acute Comment: stable now (12) Physical deconditioning Code(s): R53.81 - OTHER MALAISE Status: Acute (13) Cardiomyopathy Code(s): I42.9 - CARDIOMYOPATHY, UNSPECIFIED Status: Chronic Comment: rg Ischemic.EF 10-15% - Plan respiratory therapy, incentive spirometry, DVT proph w/SCDs labs in am -: optimize medical management for ac on CKD and Ac CHF.cardioprudent meds -: poor prognosis -: CM assisting w locating his family * . Review of Systems - Review of Systems Other: can't be reliably obtainable due to somnolence - Medications/Allergies Allergies/Adverse Reactions: Allergies Allergy/AdvReac Type Severity Reaction Status Date / Time No Known Allergies Allergy Unverified 05/26/18 13:46 Medications: Current Medications Acetaminophen (Tylenol) 1,000 mg PO Q6H PRN PRN Reason: Mild Pain (1-3) Last Admin: 05/28/18 16:11 Dose: 1,000 mg Amiodarone HCl (Cordarone) 200 mg PO BID [facility] Last Admin: 06/01/18 09:34 Dose: 200 mg Aspirin (Ecotrin) 81 mg PO DAILY [facility] Last Admin: 06/01/18 09:34 Dose: 81 mg Atorvastatin Calcium (Lipitor) 20 mg PO HS [facility] Benzonatate (Tessalon) 100 mg PO Q6H PRN PRN Reason: Cough Last Admin: 05/28/18 06:38 Dose: 100 mg Carvedilol (Coreg) 3.125 mg PO BID[facility] Famotidine (Pepcid) 20 mg PO DAILY [facility] Furosemide (Lasix) 40 mg PO 0900,1400 [facility] Last Admin: 06/01/18 09:34 Dose: 40 mg Guaifenesin (Robitussin Sf) 200 mg PO Q4H PRN PRN Reason: Cough Last Admin: 05/28/18 08:04 Dose: 200 mg Piperacillin Sod/Tazobactam (Sod 3.375 gm/ Sodium Chloride) 100 mls @ 200 mls/ hr IVPB Q6HR [facility] Last Admin: 06/01/18 11:18 Dose: 100 mls Ondansetron HCl (Zofran Odt) 4 mg PO Q6H PRN PRN Reason: Nausea/Vomiting Ondansetron HCl (Zofran) 4 mg IVP Q6H PRN PRN Reason: Nausea/Vomiting Last Admin: 05/27/18 08:30 Dose: 4 mg Potassium Chloride (K-Dur) 20 meq PO BID-[facility] Last Admin: 06/01/18 09:34 Dose: 20 meq Sodium Chloride (Flush - Normal Saline) 10 ml IVF PRN PRN PRN Reason: Saline Flush Last Admin: 05/31/18 06:19 Dose: 10 ml Spironolactone (Aldactone) 12.5 mg PO QAM-[facility] Last Admin: 06/01/18 09:34 Dose: 12.5 mg
[2018-06-01] MEDS: Carvedilol 3.125 MG TAB PO SCH (17:15)
--- NOTE | 2018-06-01 19:12 | PRG ---
DATE OF SERVICE: 06/01/2018 SUBJECTIVE: Jose Avila awakens and follows commands. OBJECTIVE: VITAL SIGNS: Heart rate is in the 60s, blood pressure 120/81, and respiratory rates in the teens. LUNGS: Clear. HEART: Regular rhythm. ABDOMEN: Soft. EXTREMITIES: Without asymmetry. LABORATORY DATA: Ammonia was normal yesterday. No new lab today. IMPRESSION: 1. Cardiomyopathy. 2. Chronic kidney disease. 3. Cirrhosis. 4. Severe pneumonia. 5. Coronary artery bypass grafting in the past. 6. History of rectal bleeding with no ongoing gastrointestinal blood loss. He probably should be considered for transfer to the infirmary at [facility]. It does not appear that any procedures are anticipated. With multiorgan failure, he is really not a candidate for anything other than supportive care, especially in light of a do not resuscitate status. Job ID: [id number]
[2018-06-01] MEDS: Atorvastatin Calcium 20 MG TAB PO SCH (20:13)
[2018-06-02] MEDS: Piperacillin/Tazobactam 3.375 GM in Sodium Chloride 0.9% 100 ML IVPB SCH ×4 (00:13→17:38)
[2018-06-02] MEDS: Acetaminophen 500 MG TAB PO PRN ×2 (02:22→22:03)
[2018-06-02 05:27] LABS: #Lymphocytes 0.6 thou/uL (1.20-3.40); #Monocytes 0.7 thou/uL (0.11-0.59); #Neutrophils 8.3 thou/uL (1.40-6.50); %Basophils 0.1 % (0.0-1.0); %Eosinophils 0.4 % (0.0-10.0); %Monocytes 7.2 % (0.0-10.0); %Neutrophils 86.3 % (42.0-75.0); Hemoglobin 7.5 g/dL (14.0-18.0); Mean Corpuscular Hemoglobin 23.2 pg (27.0-31.0); Mean Corpuscular Volume 77.4 fL (78.0-98.0); Mean Platelet Volume 10.8 fL (7.4-10.4); Platelet Count 183 thou/uL (130-400); RBC Distribution Width 18.2 % (11.5-14.5); Red Blood Cell (RBC) Count 3.22 mill/uL (4.70-6.10); White Blood Cell (WBC) Count 9.6 thou/uL (4.8-10.8)
[2018-06-02 05:44] LABS: Anion Gap 12 mmol/L (10-20); BUN (Urea Nitrogen) 66 mg/dL (8.4-25.7); Calc. Creatinine Clearance 25 mL/min (70-130); Calcium 7.7 mg/dL (7.8-10.44); Carbon Dioxide 26 mmol/L (23-31); Chloride 109 mmol/L (98-107); Estimated GFR-MDRD 28; Glucose 96 mg/dL (83-110); Potassium 3.4 mmol/L (3.5-5.1); Sodium 144 mmol/L (136-145)
[2018-06-02] MEDS: Spironolactone 25 MG TAB PO SCH (08:59)
[2018-06-02] MEDS: Carvedilol 3.125 MG TAB PO SCH ×2 (08:59→17:38)
[2018-06-02] MEDS: Potassium Chloride 20 MEQ TAB PO SCH ×2 (08:59→17:38)
[2018-06-02] MEDS ORDERED: hydrALAZINE 25 MG TAB PO SCH (09:00)
[2018-06-02] MEDS: Furosemide 20 MG TAB PO SCH ×2 (09:00→14:59)
[2018-06-02] MEDS: Aspirin 81 mg Enteric Coated Tablet PO SCH (09:00)
[2018-06-02] MEDS: Amiodarone 200 MG TAB PO SCH ×3 (09:00→22:04)
[2018-06-02] MEDS: Famotidine 20 MG TAB PO SCH (09:00)
--- NOTE | 2018-06-02 10:40 | PRG ---
DATE OF SERVICE: 06/02/2018 SUBJECTIVE: Jose Avila is stable. He has no new complaints. OBJECTIVE: VITAL SIGNS: Heart rate in the 50s, blood pressure 120/61, respiratory rate in the 20s, and oximetry is 95%. LUNGS: Clear. HEART: Regular rhythm. ABDOMEN: Soft. LABORATORY DATA: White count 9.6, hemoglobin 7.5, and platelets 183. Sodium 144, potassium 3.4, chloride 109, bicarb 26, BUN 66, and creatinine 2.26. IMPRESSION: 1. Cirrhosis. 2. Severe systolic heart failure, but stable. 3. Hypokalemia. 4. Chronic kidney disease. 5. Anemia of chronic disease, perhaps combined with some degree of blood loss. His hemoglobin has drifted from 9.2 down to 7.5. PLAN: He probably should be transferred. He could be moved to a medical bed, awaiting placement in a [facility] bed in my opinion. Job ID: [id number]
[2018-06-02] MEDS: hydrALAZINE 10 MG TAB PO SCH ×4 (12:32→22:03)
--- NOTE | 2018-06-02 15:46 | PDOC.EVN ---
Event Note - Event Note Event Note: CONTRAINDICATION TO ORAL ANTICOAGULATION FOR PAROXYSMAL A-FIB DUE TO GI BLEED.
--- NOTE | 2018-06-02 18:19 | PRG ---
DATE OF SERVICE: SUBJECTIVE: Patient was seen and examined at bedside and overnight events noted. Patient denies any shortness of breath or chest pain or palpitation. No history of nausea or vomiting or diarrhea or fever or chills or cramps. OBJECTIVE: GENERAL: This is a well-developed male, in no apparent distress. VITAL SIGNS: Temperature 99. Heart rate 59. Respiratory rate 18. Blood pressure 113/60. HEENT: Atraumatic, normocephalic. Oral mucosa is moist NECK: Supple. CARDIOVASCULAR: S1, S2 heard. Rate and rhythm regular. RESPIRATORY: Clear to auscultation. GASTROINTESTINAL: Abdomen is soft. MUSCULOSKELETAL: 1+ edema. DERMATOLOGIC: No skin rash. NEUROLOGIC: Alert and awake and oriented X3. No focal neurologic deficits. Moving all the extremities. PSYCHIATRIC: Mood and affect normal. LABORATORY DATA: Potassium is 3.4, BUN is 56, creatinine is 2.2. ASSESSMENT AND PLAN: 1. Acute kidney injury on chronic kidney disease, stage 4, stable. 2. Cardiorenal syndrome, as above. 3. Hypokalemia. 4. Multiorgan failure. Prognosis is guarded. No acute indication for dialysis. We will monitor. Job ID: [id number]
--- NOTE | 2018-06-02 18:30 | DIS ---
DATE OF ADMISSION: 05/26/2018 DATE OF DISCHARGE: 06/02/2018 CONDITION AT THE TIME OF DISCHARGE: Stable and improved. DISCHARGE DISPOSITION: Back to [facility]. DISCHARGE DIAGNOSES: 1. Acute on chronic systolic congestive heart failure. Ejection fraction is 10% to 15%. 2. Acute on chronic renal disease. 3. Acute metabolic encephalopathy, improved. 4. Paroxysmal atrial fibrillation with rapid ventricular response, sinus rhythm now. 5. Demand ischemia myocardium. 6. Hematochezia. The patient not desirous of any further workup. 7. Transaminitis. Likely due to passive liver congestion from congestive heart failure. 8. Acute hypoxic respiratory failure, resolved. 9. Benign prostatic hypertrophy. 10. Coronary artery disease. 11. Ischemic cardiomyopathy. 12. Blood-loss anemia. 13. Physical deconditioning. 14. Cardiomyopathy, likely ischemic. 15. Aspiration pneumonitis, suspected. CODE STATUS: Do not resuscitate or intubate. The patient has refused placement of a LifeVest or defibrillator. IN-HOUSE CONSULTATION: 1. Palliative Care. 2. Pulmonary Medicine, Dr. Rush. 3. Nephrology, Dr. Garduno. 4. Cardiology, Dr. Bee. 5. Gastroenterology Dr. Dante De La Torre. HISTORY OF PRESENTING ILLNESS: Mr. Jones is an 78-year-old male who is currently in residential, who presented to the emergency room with complaints of shortness of breath. He had to be started on BiPAP because of severe hypoxic respiratory failure upon presentation. He was found to have volume overload and hypoxemia in the emergency room. He was given aspirin and nitroglycerin. He is on Lasix as his BNP was noted to be 4800. His hemoglobin was found to be 5.5, and he was typed and crossed and was given 2 units of packed RBCs at the ER as well. Found to have acute renal insufficiency upon presentation with creatinine of 2.22. His troponin was elevated to 0.064. Chest x-ray showed pulmonary vascular congestion. EKG some T-wave depression. Please see admission History and Physical for full details, and it was dictated by Dr. Durbin on 05/26/2018. HOSPITAL COURSE: The patient was diuresed, and Gastroenterology and Cardiology were consulted. Echocardiogram was ordered. He was also seen by Pulmonary Medicine while he was in [facility]. Dr. De La Torre saw the patient, and the patient refused any gastroenterological intervention as offered by Dr. De La Torre, including colonoscopy and EGD. His H and H were trended; after transfusion, it remained stable; so, Dr. De La Torre signed off. With regard to his pulmonary status, he needed on and off BiPAP. With regard to his acute congestive heart failure, Dr. Bee saw the patient, and echocardiogram was done. He also went into atrial fibrillation with RVR. This was treated with amiodarone, digoxin, and beta kelton. His echo shows severely depressed ejection fraction of 10% to 15%. He was medically managed. The patient expressed wishes to not be intubated or resuscitated even prior the echocardiogram. This was further discussed after the echocardiogram results were made available, and he stood by his decision and declined any further procedures. He did not want any LifeVest or AICD placements. Eventually, he was stable on Coreg and amiodarone, and digoxin was stopped. He was not a candidate for any CHIQUI inhibitor or ARB because of renal failure. Dr. Garduno from Nephrology saw the patient for his renal insufficiency, and it remained stable throughout his hospitalization. He likely has cardiorenal syndrome. This morning, he has been cleared for discharge from Pulmonary and Cardiology standpoint as well as Nephrology standpoint. He will be discharged back to [facility] as he is no longer desirous to get any invasive testing, and he is hemodynamically stable. The patient was evaluated by speech therapist as he developed leukocytosis and chest x-ray was concerning for possible aspiration. He indeed was having aspiration, but he did not want to follow the recommendations per the speech therapist for modified diet. He was started on diet with aspiration precautions. He was empirically treated with IV antibiotics which were later changed to oral. DISCHARGE MEDICATIONS: 1. Terazosin 5 mg daily. 2. Docusate 100 p.o. b.i.d. 3. Aspirin 81 mg daily. 4. Lipitor 40 mg daily. 5. Aldactone 12.5 mg daily. 6. Potassium chloride 20 mEq daily. 7. Lasix 40 mg p.o. b.i.d. 8. Carvedilol 6.25 mg p.o. b.i.d. 9. Amiodarone 200 mg p.o. b.i.d. 10. Augmentin 875 p.o. b.i.d. This is for possible aspiration pneumonitis. PHYSICAL EXAMINATION: GENERAL: He was seen and examined prior to discharge. He is awake, alert, and oriented x3. No acute distress. Awake, alert, and oriented x3. VITAL SIGNS: Stable. Heart rate anywhere from 59 to 64 and blood pressure 128/61. CHEST: Shows some basilar congestion, but rate and rhythm are regular. DISCHARGE DISPOSITION: [facility]. TOTAL TIME SPENT: 38 minutes. Job ID: [id number]
[2018-06-02] MEDS: Atorvastatin Calcium 20 MG TAB PO SCH ×2 (20:07→22:04)
[2018-06-02 22:04] VITALS: BP 147/70
[2018-06-03] MEDS: Piperacillin/Tazobactam 3.375 GM in Sodium Chloride 0.9% 100 ML IVPB SCH ×3 (00:13→14:25)
[2018-06-03] MEDS ORDERED: Carvedilol 3.125 MG TAB PO SCH (07:29)
[2018-06-03] MEDS ORDERED: Metolazone 5 MG TAB PO SCH (07:30)
[2018-06-03] MEDS ORDERED: Potassium Chloride 20 MEQ/100 ML PREMIX BAG IVPB SCH (09:00)
[2018-06-03] MEDS: hydrALAZINE 10 MG TAB PO SCH ×2 (09:28→16:14)
[2018-06-03] MEDS: Aspirin 81 mg Enteric Coated Tablet PO SCH (09:28)
[2018-06-03] MEDS: Potassium Chloride 20 MEQ TAB PO SCH ×2 (09:29→16:13)
[2018-06-03] MEDS: Furosemide 20 MG TAB PO SCH ×2 (09:29→14:22)
[2018-06-03] MEDS: Amiodarone 200 MG TAB PO SCH (09:29)
[2018-06-03] MEDS: Famotidine 20 MG TAB PO SCH (09:29)
[2018-06-03] MEDS: Spironolactone 25 MG TAB PO SCH (09:30)
[2018-06-03] MEDS: Carvedilol 6.25 MG TAB PO SCH ×2 (09:32→16:13)
--- NOTE | 2018-06-03 14:22 | PDOC.PN ---
- Subjective Encounter Start Date: 06/03/18 Encounter Start Time: 14:21 Subjective: Discharged yesterday but didn't go as no beds in [facility] -: no changes ON.remains stable - Objective Resuscitation Status - Order Detail: 05/30/18 11:16 Resuscitation Status Routine Resuscitation Status: DNAR: NO Resuscitation Discussed with: discussed w pt in detail MAR Reviewed: Yes Vital Signs & Weight: Vital Signs (12 hours) Temp Pulse BP Pulse Ox 06/03/18 10:41 99.2 F 06/03/18 09:32 147/70 H 06/03/18 09:28 65 147/70 H 06/03/18 08:00 93 L 06/03/18 07:09 99.0 F 06/03/18 03:55 98.6 F Weight Admit Weight 2.773 oz Weight 153 lb 14.4 oz Most Recent Monitor Data Heart Rate from ECG 67 NIBP 130/56 NIBP BP-Mean 80 Respiration from ECG 38 SpO2 94 I&O: 06/02/18 06/03/18 06/04/18 06:59 06:59 06:59 Intake Total 2080 1530 120 Output Total 3100 2000 Balance -1020 -470 120 Result Diagrams: 06/02/18 04:53 06/02/18 04:53 Additional Labs: Microbiology 05/30/18 10:33 Venous blood - Left Hand Blood Culture - Final Coagulase Neg Staphylococcus Coagulase Neg Staphylococcus#2 05/26/18 10:46 Urine voided Urine Culture - Final 05/30/18 10:33 Venous blood - Right Hand Blood Culture - Preliminary NO GROWTH AT 48 HOURS Phys Exam - Physical Examination Constitutional: NAD HEENT: PERRLA, moist MMs, sclera anicteric, oral pharynx no lesions Neck: no nodes, no JVD, supple, full ROM Respiratory: no wheezing, no rales, no rhonchi, clear to auscultation bilateral Cardiovascular: RRR, no significant murmur, no rub Gastrointestinal: soft, non-tender, no distention, positive bowel sounds Musculoskeletal: no edema, pulses present Neurological: non-focal, normal sensation, moves all 4 limbs Psychiatric: normal affect, A&O x 3 Skin: no rash Dx/Plan (1) Acute on chronic systolic and diastolic heart failure, NYHA class 3 Code(s): I50.43 - ACUTE ON CHRONIC COMBINED SYSTOLIC AND DIASTOLIC HRT FAIL Status: Acute Comment: cont diuresis.EF 10-15% on ECHO. on ASA,BB,statin.No CHIQUI-I/ARB due to IACHA/CKD. Add aldcatone (2) AICHA (acute kidney injury) Code(s): N17.9 - ACUTE KIDNEY FAILURE, UNSPECIFIED Status: Acute Comment: may have some underling CKD. renal US consistant with CKD (3) Acute encephalopathy Code(s): G93.40 - ENCEPHALOPATHY, UNSPECIFIED Status: Resolved Comment: Multifactorial.Ammonia NL.suspect Hypercarbia.Pt DNR/DNI.improved (4) Paroxysmal atrial fibrillation with RVR Code(s): I48.0 - PAROXYSMAL ATRIAL FIBRILLATION Status: Acute Comment: on amiodarone .NSR now (5) Demand ischemia of myocardium Code(s): I24.8 - OTHER FORMS OF ACUTE ISCHEMIC HEART DISEASE Status: Acute (6) Hematochezia Code(s): K92.1 - MELENA Status: Acute Comment: H/H stable. Pt does not want any further work up.GI signed off. cont to monitor (7) Abnormal LFTs Code(s): R94.5 - ABNORMAL RESULTS OF LIVER FUNCTION STUDIES Status: Acute Comment: rg passive vascular congestion (8) Acute respiratory failure with hypoxia Code(s): J96.01 - ACUTE RESPIRATORY FAILURE WITH HYPOXIA Status: Acute (9) BPH (benign prostatic hyperplasia) Code(s): N40.0 - BENIGN PROSTATIC HYPERPLASIA WITHOUT LOWER URINRY TRACT SYMP Status: Chronic (10) CAD (coronary artery disease) Code(s): I25.10 - ATHSCL HEART DISEASE OF [place] CORONARY ARTERY W/O ANG PCTRS Status: Chronic (11) Iron deficiency anemia due to chronic blood loss Code(s): D50.0 - IRON DEFICIENCY ANEMIA SECONDARY TO BLOOD LOSS (CHRONIC) Status: Acute Comment: stable now (12) Physical deconditioning Code(s): R53.81 - OTHER MALAISE Status: Acute (13) Cardiomyopathy Code(s): I42.9 - CARDIOMYOPATHY, UNSPECIFIED Status: Chronic Comment: rg Ischemic.EF 10-15% - Plan respiratory therapy, incentive spirometry, out of bed/ambulate, DVT proph w/SCDs Will give one dose zaroxolyn as weight gain since yesterday -: give additional dose Potassium and cont PO BID -: Avoidable day #1 -: transfer to medical.remains DNR/DNI -: stop IV ABx * . Review of Systems - Review of Systems Constitutional: weakness, malaise. negative: fever, chills, sweats, other Respiratory: SOB with Excertion. negative: Cough, Dry, Shortness of Breath, Hemoptysis, Pleuritic Pain, Sputum, Wheezing Cardiovascular: negative: chest pain, palpitations, orthopnea, paroxysmal nocturnal dyspnea, edema, light headedness, other Gastrointestinal: negative: Nausea, Vomiting, Abdominal Pain, Diarrhea, Constipation, Melena, Hematochezia, Other Genitourinary: negative: Dysuria, Frequency, Incontinence, Hematuria, Retention , Other Musculoskeletal: negative: Neck Pain, Shoulder Pain, Arm Pain, Back Pain, Hand Pain, Leg Pain, Foot Pain, Other Neurological: negative: Weakness, Numbness, Incoordination, Change in Speech, Confusion, Seizures, Other - Medications/Allergies Allergies/Adverse Reactions: Allergies Allergy/AdvReac Type Severity Reaction Status Date / Time No Known Allergies Allergy Unverified 05/26/18 13:46 Medications: Current Medications Acetaminophen (Tylenol) 1,000 mg PO Q6H PRN PRN Reason: Mild Pain (1-3) Last Admin: 06/02/18 22:03 Dose: 1,000 mg Amiodarone HCl (Cordarone) 200 mg PO BID [facility] Last Admin: 06/03/18 09:29 Dose: 200 mg Aspirin (Ecotrin) 81 mg PO DAILY [facility] Last Admin: 06/03/18 09:28 Dose: 81 mg Atorvastatin Calcium (Lipitor) 20 mg PO HS [facility] Last Admin: 06/02/18 22:04 Dose: 20 mg Benzonatate (Tessalon) 100 mg PO Q6H PRN PRN Reason: Cough Last Admin: 05/28/18 06:38 Dose: 100 mg Carvedilol (Coreg) 6.25 mg PO BID-[facility] Last Admin: 06/03/18 09:32 Dose: 6.25 mg Famotidine (Pepcid) 20 mg PO DAILY [facility] Last Admin: 06/03/18 09:29 Dose: 20 mg Furosemide (Lasix) 40 mg PO 0900,1400 [facility] Last Admin: 06/03/18 09:29 Dose: 40 mg Guaifenesin (Robitussin Sf) 200 mg PO Q4H PRN PRN Reason: Cough Last Admin: 05/28/18 08:04 Dose: 200 mg Hydralazine HCl (Apresoline) 10 mg PO TID [facility] Last Admin: 06/03/18 09:28 Dose: 10 mg Piperacillin Sod/Tazobactam (Sod 3.375 gm/ Sodium Chloride) 100 mls @ 200 mls/ hr IVPB Q6HR [facility] Last Admin: 06/03/18 05:44 Dose: 100 mls Ondansetron HCl (Zofran Odt) 4 mg PO Q6H PRN PRN Reason: Nausea/Vomiting Last Admin: 06/02/18 22:04 Dose: 4 mg Ondansetron HCl (Zofran) 4 mg IVP Q6H PRN PRN Reason: Nausea/Vomiting Last Admin: 05/27/18 08:30 Dose: 4 mg Potassium Chloride (K-Dur) 20 meq PO BID-[facility] Last Admin: 06/03/18 09:29 Dose: 20 meq Sodium Chloride (Flush - Normal Saline) 10 ml IVF PRN PRN PRN Reason: Saline Flush Last Admin: 05/31/18 06:19 Dose: 10 ml Spironolactone (Aldactone) 12.5 mg PO QAM-[facility] Last Admin: 06/03/18 09:30 Dose: 12.5 mg
--- NOTE | 2018-06-03 14:35 | PRG ---
DATE OF SERVICE: 06/03/2018 SUBJECTIVE: Patient was seen and examined at bedside and overnight events noted. Patient denies any shortness of breath or chest pain or palpitation. No history of nausea or vomiting or diarrhea or fever or chills or cramps. OBJECTIVE: GENERAL: This is a well-built male, in no apparent distress. VITAL SIGNS: Temperature 99.2. Heart rate 67. Respiratory rate 18. Blood pressure 130/56. HEENT: Atraumatic, normocephalic. Oral mucosa is moist. NECK: Supple. CARDIOVASCULAR: S1, S2 heard. Rate and rhythm regular. RESPIRATORY: Clear to auscultation. GASTROINTESTINAL: Abdomen is soft. MUSCULOSKELETAL: No tenderness. No edema. DERMATOLOGIC: No skin rash. NEUROLOGIC: Alert and awake and oriented X3. No focal neurologic deficits. Moving all the extremities. PSYCHIATRIC: Mood and affect normal. LABORATORY DATA: Not done today. ASSESSMENT AND PLAN: 1. Acute kidney injury on chronic kidney disease, stage 4. 2. Cardiorenal syndrome. 3. Hypokalemia. 4. Multiorgan failure. Monitor labs. Prognosis poor. Job ID: [id number]
[2018-06-03] MEDS ORDERED: Piperacillin/Tazobactam 3.375 GM in Sodium Chloride 0.9% 100 ML IVPB SCH (15:30)
[2018-06-03 19:10] VITALS: TEMP 98.5
[2018-06-03] MEDS ORDERED: Amoxicillin/Potassium Clav 875 MG TAB PO SCH (21:00)
--- NOTE | 2018-06-05 14:36 | DIS ---
DATE OF ADMISSION: 05/26/2018 DATE OF DISCHARGE: 06/03/2018 ADDENDUM: Please see the original discharge summary dictated by myself on 06/02/2018, please note that the date of discharge is 06/03/2018. The patient was discharged on 06/02/2018, but did not go as the [facility] bed was not available. It was made available the next day and the patient was discharged. He was seen and examined prior to discharge. Please see hospitalist's progress note from the date of discharge for full detail including [id number] interaction. TOTAL TIME SPENT: 38 minutes. Job ID: [id number]
== END 2018-06-03 20:00 | DRG 291 ==
LOC: ERS 09:53 → CCU 11:25 → IMCU/EMU 05-28 20:32
PROVIDERS: ADMIT Family Medicine; ATTEND Family Medicine
PROC: 30233N1 Transfusion of Nonautologous Red Blood Cells into Peripheral Vein, Percutaneous Approach (ICD-10-PCS; principal; 2018-05-26)
PROC: 5A09457 Assistance with Respiratory Ventilation, 24-96 Consecutive Hours, Continuous Positive Airway Pressure (ICD-10-PCS; 2018-05-26)
DX: I13.0 Hypertensive heart and chronic kidney disease with heart failure and stage 1 through stage 4 chronic kidney disease, or unspecified chronic kidney disease (principal); J96.01 Acute respiratory failure with hypoxia; I50.43 Acute on chronic combined systolic (congestive) and diastolic (congestive) heart failure; G93.41 Metabolic encephalopathy; J69.0 Pneumonitis due to inhalation of food and vomit; N17.9 Acute kidney failure, unspecified; I24.8 Other forms of acute ischemic heart disease; N18.4 Chronic kidney disease, stage 4 (severe); K92.1 Melena; Z66 Do not resuscitate; I42.9 Cardiomyopathy, unspecified; I25.10 Atherosclerotic heart disease of native coronary artery without angina pectoris; E78.5 Hyperlipidemia, unspecified; N40.0 Benign prostatic hyperplasia without lower urinary tract symptoms; K40.90 Unilateral inguinal hernia, without obstruction or gangrene, not specified as recurrent; Z95.1 Presence of aortocoronary bypass graft; Z79.82 Long term (current) use of aspirin; D50.0 Iron deficiency anemia secondary to blood loss (chronic); Z91.11 Patient's noncompliance with dietary regimen; E87.6 Hypokalemia; K74.60 Unspecified cirrhosis of liver; I48.0 Paroxysmal atrial fibrillation; Z91.14 Patient's other noncompliance with medication regimen
CPT/HCPCS: 36415; 36430; 71045; 76770; 80048; 80053; 81003; 81015; 82140; 82550; 82553; 82728; 83540; 83550; 83735; 83880; 84443; 84484; 85007; 85025; 85027; 85046; 86850; 86900; 86901; 87040; 87086; 87149; 93005; 93306; 94660; 99292; J0282; J1160; J1940; J2405; J2543; J2916; J3480; J7050; J7070; P9016; Q0162; S0028